=== PATIENT | female | born 1960 | race Caucasian/White ===

== ENCOUNTER 2019-04-18 19:38 | Inpatient (IN) ==
--- NOTE | 2019-04-18 19:58 | Emergency Department Note ---
Weakness HPI - General Chief complaint: Weakness Stated complaint: weakness and nausea and headache Time Seen by Provider: 04/18/19 19:48 Source: patient Mode of arrival: wheelchair - History of Present Illness HPI Narrative: This patient has been feeling weak in general and took a fall today. She thinks she hit her head and got knocked out and has headache and some neck pain. She does have chronic migraine headaches. She also has pain in the left ankle where she has swelling and redness developing. Some mild abdominal discomfort just below the rib cage in the middle which she thinks might be due to the fall. No focal neurologic symptoms. - Related Data Home Medications Medication Instructions Recorded Confirmed Gabapentin [Neurontin] 300 mg PO BID 04/18/19 04/18/19 traMADol [Ultram] 50 mg PO Q6HP PRN 04/18/19 04/18/19 Allergies Allergy/AdvReac Type Severity Reaction Status Date / Time NO KNOWN DRUG ALLERGIES Allergy Unknown N/A Uncoded 04/18/19 19:44 Review of Systems All systems ED: reviewed and negative except as stated. Past Medical History - Past Medical History [facility] Narrative: Medical History COPD exacerbation (Acute) Medical history: Reports: COPD - Social History smoking status: Former smoker Alcohol use: Reports: Occasionally Drug use: Reports: none Physical Exam Limitations: no limitations General appearance: alert Head: atraumatic Eye: Present: normal appearance ENT: normal exam Neck: Present: normal inspection, full ROM, tenderness Chest: Present: normal inspection, tenderness (Right lower rib cage) Respiratory: Present: normal lung sounds bilaterally Cardiovascular: Present: regular rate, normal rhythm, normal heart sounds Abdominal: Present: soft, tenderness (In the epigastrium and right upper quadrant). Absent: distention Extremities: Present: pedal edema (On the left), pretibial edema (On the left) Neurological: Present: alert Psychiatric: Present: flat affect Skin: Present: warm, dry Course Vital Signs Temperature 100.3 F H 04/18/19 19:39 Pulse Rate 132 H 04/18/19 19:39 Respiratory Rate 16 04/18/19 19:39 Blood Pressure 106/66 04/18/19 19:39 Pulse Oximetry (%) 97 04/18/19 19:39 Temperature 99.2 F H 04/18/19 22:02 Pulse Rate 113 H 04/18/19 22:31 Respiratory Rate 26 H 04/18/19 22:31 Blood Pressure 97/54 04/18/19 22:31 Pulse Oximetry (%) 97 04/18/19 22:31 Weakness - MDM Narrative Medical decision making narrative: CT of head and neck were negative venous Doppler is negative x-ray of left ankle was negative chest x-ray negative. Urinalysis was borderline with 13 white cells. Blood pressure is fallen from 110-97 her heart rate remains about 113. She does have a significant cellulitis in the left lower leg and we did blood cultures and started her on vancomycin. She will be admitted to the hospital by the hospitalist service. - Lab Data Lab results reviewed: Yes I reviewed the patient's lab results. Result diagrams: 04/18/19 20:09 04/18/19 20:08 Lab Results 04/18/19 04/18/19 04/18/19 Range/Units 20:08 20:09 21:00 WBC 13.6 H (4.5-11.0) K/mcL RBC 5.01 (4.00-5.20) M/mcL Hgb 14.1 (12.0-15.0) g/dL Hct 42.9 (36.0-48.0) % MCV 85.5 (80.0-100.0) fL MCH 28.2 (26.0-34.0) pg MCHC 33.0 (31.0-36.0) g/dL RDW 14.3 (11.5-14.5) % Plt Count 208 (140-440) K/mcL MPV 8.3 (7.4-10.4) fL Gran % 91.9 H (38.0-78.0) % Lymph % (Auto) 4.2 L (15.5-49.0) % [place] % (Auto) 3.8 (1.0-12.0) % Eos % (Auto) 0 (0.0-7.0) % Baso % (Auto) 0.1 (0.0-2.0) % Gran # 12.5 H (1.8-8.0) K/mcL Lymph # (Auto) 0.6 L (1.5-4.8) K/mcL [place] # (Auto) 0.5 (0.1-0.9) K/mcL Eos # (Auto) 0 (0.0-0.7) K/mcL Baso # (Auto) 0 (0.0-0.3) K/mcL Sodium 135 (133-145) mmol/L Potassium 3.4 (3.3-5.1) mmol/L Chloride 97 (96-108) mmol/L Carbon Dioxide 19 L (22-30) mmol/L Anion Gap 19.0 H (8-16) BUN 24 H (6-20) mg/dl Creatinine 1.3 H (0.6-1.1) mg/dl GFR Calculation 45 Glucose 147 H (70-105) mg/dL Calcium 9.1 (8.6-10.4) mg/dl Total Bilirubin 1.3 H (0.0-1.0) mg/dL AST 59 H (0-37) U/l ALT 30 (0-40) U/l Alkaline Phosphatase 95 (39-117) U/L Total Protein 7.4 (5.9-8.4) gm/dL Albumin 3.6 (3.2-5.2) gm/dL Globulin 3.8 H (2.2-3.7) gm/dL Albumin/Globulin Ratio 0.9 L (1.0-2.3) Urine Color Carmen Urine Appearance Cloudy Urine pH 5.0 (5.0-9.0) Ur Specific [place] 1.017 (1.000-1.035) Urine Protein 100 A (NEG) mg/dL Urine Glucose (UA) Negative (NEG) mg/dL Urine Ketones 5/tr A (NEG) mg/dL Urine Occult Blood 0.2 A (<0.03) mg/dL Urine Nitrate Neg (NEG) Urine Bilirubin Neg (NEG) mg/dL Urine Urobilinogen 2.0 A (NEG) mg/dL Ur Leukocyte Esterase Neg (NEG) /uL Urine RBC 5 H (0-1) /hpf Urine WBC 13 H (0-4) /hpf Ur Squamous Epith Cells 1 (0-4) /hpf Uric Acid Crystals Mod A (0) /hpf Amorphous Crystals Few A (0) /hpf Urine Bacteria 0 (0) /hpf Hyaline Casts 10 H (0-2) /lpf Granular Casts 7 H (0) /lpf Urine Mucus Mod (0) /hpf Ur Culture Indicated? Yes - Radiology Data Radiology results reviewed: Yes I reviewed the patient's radiology results. Disposition Pt seen by SITE DAMAGE PREVENTION TECHNICIAN/PA only: No Clinical Impression: Cellulitis Disposition: Xfer As Outpt/Obs ([facility]) Condition: Fair Referrals: Martina Thomson MD [Primary Care Provider] - Time of Disposition: 22:51
[2019-04-18 20:50] LABS: Basophils # (Auto) 0 K/mcL (0.0-0.3); Basophils % (Auto) 0.1 % (0.0-2.0); Eosinophils # (Auto) 0 K/mcL (0.0-0.7); Eosinophils % (Auto) 0 % (0.0-7.0); Granulocytes % (Auto) 91.9 % (38.0-78.0); Hematocrit 42.9 % (36.0-48.0); Hemoglobin 14.1 g/dL (12.0-15.0); Lymphocytes # (Auto) 0.6 K/mcL (1.5-4.8); Lymphocytes % (Auto) 4.2 % (15.5-49.0); Mean Cell Volume 85.5 fL (80.0-100.0); Mean Platelet Volume 8.3 fL (7.4-10.4); Monocytes # (Auto) 0.5 K/mcL (0.1-0.9); Monocytes % (Auto) 3.8 % (1.0-12.0); Platelet Count 208 K/mcL (140-440); RBC 5.01 M/mcL (4.00-5.20); Red Cell Distribution Width 14.3 % (11.5-14.5); WBC 13.6 K/mcL (4.5-11.0)
[2019-04-18 20:52] LABS: ALT/SGPT 30 U/l (0-40); AST/SGOT 59 U/l (0-37); Albumin 3.6 gm/dL (3.2-5.2); Albumin/Globulin Ratio 0.9 (1.0-2.3); Alkaline Phosphatase 95 U/L (39-117); Bilirubin,Total 1.3 mg/dL (0.0-1.0); Blood Urea Nitrogen 24 mg/dl (6-20); Calcium 9.1 mg/dl (8.6-10.4); Carbon Dioxide 19 mmol/L (22-30); Chloride 97 mmol/L (96-108); Globulin 3.8 gm/dL (2.2-3.7); Glomerular Filtration Rate 45; Glucose 147 mg/dL (70-105); Potassium 3.4 mmol/L (3.3-5.1); Sodium 135 mmol/L (133-145)
[2019-04-18] MEDS ORDERED: 0.9 % SODIUM CHLORIDE 1,000 ML IV ONE (21:01)
[2019-04-18] MEDS ORDERED: ACETAMINOPHEN 325 MG TABLET PO ONE (21:06)
[2019-04-18] MEDS ORDERED: VANCOMYCIN 1,000 MG in 0.9 % SODIUM CHLORIDE 250 ML IV ONE (21:54)
[2019-04-18 22:10] LABS: Appearance,Urine CLOUDY; Bacteria,Urine 0 /hpf (0); Bilirubin,Urine NEG (NEG); Color,Urine AMBER; Culture Indicated,Urine YES; Glucose,Urine (UA) NEGATIVE (NEG); Ketones,Urine 5/TR mg/dL (NEG); Leukocyte Esterase,Urine NEG /uL (NEG); Mucus,Urine MOD /hpf (0); Nitrate,Urine NEG (NEG); Protein,Urine 100 mg/dL (NEG); Specific Gravity,Urine 1.017 (1.000-1.035); Uric Acid Crystals,Urine MOD /hpf (0); Urine Amorphous Crystals FEW /hpf (0); Urine Blood 0.2 mg/dL (<0.03); Urine Granular Cast 7 /lpf (0); Urine Hyaline Cast 10 /lpf (0-2); Urine RBC 5 /hpf (0-1); Urine Squamous Epithelial Cell 1 /hpf (0-4); Urine WBC 13 /hpf (0-4)
[2019-04-18] MEDS ORDERED: LACTATED RINGERS 1,000 ML IV ONE (22:42)
[2019-04-18] MEDS ORDERED: KETOROLAC 30 MG/ML VIAL IV ONE (22:46)
[2019-04-18] MEDS ORDERED: METOCLOPRAMIDE 10 MG/2 ML VIAL IV ONE (22:46)
[2019-04-18] MEDS ORDERED: diphenhydrAMINE 50 MG/ML VIAL IV ONE (22:46)
--- NOTE | 2019-04-18 23:17 | Internal Med History&Physical ---
Medical - H&P: [facility] Patient information: Note initiated : 04/18/19 at 11:15 pm Service Date, if different from initiated Date: [] Patient: Nicole Rosenthal a 58 y/o F admitted on for weakness and nausea and headache. Chief Complaint: [] History of present illness: Ms. Rosenthal is a 58 year old F 58-year-old female who has been weak/nausea/headaches that started Friday. And she fell Friday in the bathroom possibly hitting her head, possibly fainting. She has history of migraines. She has left ankle pain and swelling and redness developing. And some rib pain where she thinks she might of hit when she fell. She reports dark urine. She become more lethargic per her friend and has had poor oral intake. She Patient complains of fevers and chills to me. No chest pain or shortness of breath or cough. In the ED she was worked up found to have a cellulitis of left leg with a septic picture. And acute kidney injury. CT of the brain and neck were unremarkable and venous Doppler leg was unrema rkable as well as ankle x-ray. Patient quite lethargic and history is assisted by her friend. Review of Systems: Pertinent positives as above. Denies vomiting/chest or abdominal pain/cough/dyspnea/diarrhea. Remaining 10 point review of system reviewed negative Medical - H&P: PMH Medical history: Past medical history: COPD Migraines Venous insufficiency with peripheral edema Neuropathy Past surgical history: Appendectomy Right oophorectomy herniated disc repair Family history: Mother is healthy Father had CAD Social history: Quit smoking 2011 Denies alcohol use Lives with a roommate Medical - H&P: Meds Home Medications Medication Instructions Recorded Confirmed Type Gabapentin [Neurontin] 300 mg PO BID 04/18/19 04/18/19 History traMADol [Ultram] 50 mg PO Q6HP PRN 04/18/19 04/18/19 History Allergies Allergy/AdvReac Type Severity Reaction Status Date / Time NO KNOWN DRUG ALLERGIES Allergy Unknown N/A Uncoded 04/18/19 19:44 Medical - H&P: Exam - Constitutional Vitals: Temp Pulse Resp BP Pulse Ox 99.2 F H 110 H 17 100/57 95 04/18/19 22:02 04/18/19 22:46 04/18/19 22:46 04/18/19 22:46 04/18/19 22:46 Exam: General: Sleeping in length but arousable but quite lethargic, No acute Distress Eyes/N/T: EOMI, PEERL, DMM Head/Neck: neck supple, normocephalic atraumatic CV: Tachycardic but regular, No murmurs, normal s1/s2 Pulm: Clear b/l, no wheezing/rhonchi/rales Abd: soft, nontender, +BS x4 Ext: no clubbing/cyanosis, edema bilateral worse on the left. Left lower extremity with erythema warmth tenderness to palpation swelling Neuro: Lethargic, no focal deficits, moves all extremities, CN 2-12 grossly intact, symmetrical strength b/l upper/lower, sensations intact b/l upper/lower Skin: warm/dry Medical - H&P: Reslt - Labs CBC & Chem 7: 04/18/19 20:09 04/18/19 20:08 Labs: Short CBC 04/18/19 Range/Units 20:09 WBC 13.6 H (4.5-11.0) K/mcL Hgb 14.1 (12.0-15.0) g/dL Hct 42.9 (36.0-48.0) % Plt Count 208 (140-440) K/mcL BMP 04/18/19 20:08 Sodium 135 Potassium 3.4 Chloride 97 Carbon Dioxide 19 L BUN 24 H Creatinine 1.3 H Glucose 147 H Calcium 9.1 Liver Function 04/18/19 Range/Units 20:08 Total Bilirubin 1.3 H (0.0-1.0) mg/dL AST 59 H (0-37) U/l ALT 30 (0-40) U/l Alkaline Phosphatase 95 (39-117) U/L Albumin 3.6 (3.2-5.2) gm/dL Urine 04/18/19 Range/Units 21:00 Urine Color Carmen Urine Appearance Cloudy Urine pH 5.0 (5.0-9.0) Ur Specific [place] 1.017 (1.000-1.035) Urine Protein 100 A (NEG) mg/dL Urine Glucose (UA) Negative (NEG) mg/dL - Impressions Per discussion with ED physician the CT brain cervical venous Doppler and x-ray were unremarkable for acute pathology Medical - H&P: A/P - Narrative A/P Narrative: A: *LLE cellulitis (ankle to upper hardy): *Sepsis: /qSofa (01/31) & SIRS (03/04): *LEIGHTON (unknown baseline): *Generalized weakness/deconditioning/falling: *Chronic venous insufficiency: Typically wears compression stockings *h/o Migraines *COPD/asthma (not on home O2): *chr pain /neuropathy: on jenna/tramadol * P: -Vanc/zosyn for now, clinda short course -pending BC -elevate legs -monitor UOP, -IVF's -cont home IH, prn nebs - -pt/ot -ppx: lovenox
[2019-04-18 23:31] LABS: Band Neutrophils % 13 % (0-10); Lymphocytes % 9 % (15-49); Monocytes % (Manual) 6 % (1-12); Platelet Estimate NORMAL (NORMAL); Polychromasia 1+ (NONE SEEN); RBC Morphology ABNORM (NORMAL); Segmented Neutrophils % 72 % (38-78)
[2019-04-19] MEDS ORDERED: 0.9 % SODIUM CHLORIDE 500 ML IV ONE (00:12)
[2019-04-19] MEDS ORDERED: ONDANSETRON 4 MG/2 ML VIAL IV PRN (00:12)
[2019-04-19] MEDS ORDERED: VANCOMYCIN PER PHARMACY IV ONE (00:12)
[2019-04-19] MEDS ORDERED: POTASSIUM CHLORIDE 40 MEQ in DEXTROSE 5% IN WATER 500 ML IV PRN (00:12)
[2019-04-19] MEDS ORDERED: SENNOSIDES 1 TABLET PO PRN (00:12)
[2019-04-19] MEDS ORDERED: PROCHLORPERAZINE 10 MG/2 ML VIAL IV PRN (00:12)
[2019-04-19] MEDS ORDERED: NOREPINEPHRINE BITARTRATE 8 MG in 0.9 % SODIUM CHLORIDE 242 ML IV SCH (00:12)
[2019-04-19] MEDS ORDERED: LACTULOSE 20 GM/30 ML ORAL.SOL PO PRN (00:12)
[2019-04-19] MEDS ORDERED: POTASSIUM CHLORIDE 20 MEQ TABLET PO PRN ×2 (00:12)
[2019-04-19] MEDS ORDERED: POLYETHYLENE GLYCOL 3350 17 GM PACKET PO PRN (00:12)
[2019-04-19] MEDS ORDERED: 0.9 % SODIUM CHLORIDE 1,000 ML IV SCH (00:12)
[2019-04-19] MEDS ORDERED: MAGNESIUM SULFATE 2 GM/50 ML BAG IV PRN (00:12)
[2019-04-19] MEDS: 0.9 % SODIUM CHLORIDE 10 ML SYRINGE IV SCH ×4 (00:35→21:37)
[2019-04-19] MEDS: CLINDAMYCIN 900 MG in DEXTROSE 5% IN WATER 50 ML IV SCH ×4 (00:35→22:13)
[2019-04-19] MEDS: PIPERACILLIN SODIUM/TAZOBACTAM 3.375 GM in DEXTROSE 5% IN WATER 50 ML IV SCH ×5 (00:35→23:55)
[2019-04-19] MEDS: 0.9 % SODIUM CHLORIDE 250 ML IV SCH ×2 (01:01→13:30)
[2019-04-19] MEDS ORDERED: ACETAMINOPHEN 325 MG TABLET PO ONE (02:42)
[2019-04-19] MEDS ORDERED: ACETAMINOPHEN 325 MG TABLET PO PRN (02:42)
[2019-04-19 05:48] LABS: Basophils # (Auto) 0 K/mcL (0.0-0.3); Basophils % (Auto) 0.1 % (0.0-2.0); Eosinophils # (Auto) 0 K/mcL (0.0-0.7); Eosinophils % (Auto) 0.2 % (0.0-7.0); Granulocytes % (Auto) 87.8 % (38.0-78.0); Hematocrit 37.2 % (36.0-48.0); Hemoglobin 12.3 g/dL (12.0-15.0); Lymphocytes # (Auto) 0.8 K/mcL (1.5-4.8); Lymphocytes % (Auto) 5.5 % (15.5-49.0); Mean Cell Volume 86.9 fL (80.0-100.0); Mean Corpuscular HGB Conc 33.1 g/dL (31.0-36.0); Monocytes # (Auto) 0.9 K/mcL (0.1-0.9); Monocytes % (Auto) 6.4 % (1.0-12.0); Platelet Count 179 K/mcL (140-440); RBC 4.28 M/mcL (4.00-5.20); Red Cell Distribution Width 14.4 % (11.5-14.5); WBC 14.1 K/mcL (4.5-11.0)
[2019-04-19] MEDS ORDERED: VANCOMYCIN PER PHARMACY IV SCH (06:00)
[2019-04-19 06:03] LABS: ALT/SGPT 24 U/l (0-40); AST/SGOT 43 U/l (0-37); Albumin 2.8 gm/dL (3.2-5.2); Albumin/Globulin Ratio 0.8 (1.0-2.3); Alkaline Phosphatase 80 U/L (39-117); Bilirubin,Direct 0.4 mg/dL (0.0-0.3); Bilirubin,Total 1.1 mg/dL (0.0-1.0); Blood Urea Nitrogen 23 mg/dl (6-20); Calcium 8.3 mg/dl (8.6-10.4); Carbon Dioxide 18 mmol/L (22-30); Chloride 104 mmol/L (96-108); Gamma Glutamyl Transpeptidase 35 U/L (5-36); Globulin 3.3 gm/dL (2.2-3.7); Glomerular Filtration Rate 49; Glucose 104 mg/dL (70-105); Lactate Dehydrogenase 352 U/L (94-250); Magnesium 1.9 mg/dL (1.6-2.5); Phosphorous 2.5 mg/dL (2.7-4.5); Potassium 3.4 mmol/L (3.3-5.1); Sodium 139 mmol/L (133-145); Triglycerides 82 mg/dl (<150); Uric Acid 5.8 mg/dL (2.5-8.0)
--- NOTE | 2019-04-19 07:30 | Internal Med Progress Note ---
Medical - PN: Subj Patient information: Note initiated : 04/19/19 at 7:30 am Service Date, if different from initiated Date: [] Patient: Nicole Rosenthal a 58 y/o F admitted on 04/19/19 for weakness and nausea and headache. Chief Complaint: [] Interval history: Ms. Rosenthal is a 58 year old F 58-year-old female who has been weak/nausea/headaches that started Friday. And she fell Friday in the bathroom possibly hitting her head, possibly fainting. She has history of migraines. She has left ankle pain and swelling and redness developing. And some rib pain where she thinks she might of hit when she fell. She reports dark urine. She become more lethargic per her friend and has had poor oral intake. She Patient complains of fevers and chills to me. No chest pain or shortness of breath or cough. In the ED she was worked up found to have a cellulitis of left leg with a septic picture. And acute kidney injury. CT of the brain and neck were unremarkable and venous Doppler leg was unremark able as well as ankle x-ray. Patient quite lethargic and history is assisted by her friend. 04/19 Planes of headaches fevers chills. Still very weak. Has left lower extremity pain. Was eating breakfast this morning and tolerated it well. Now resting in bed again. Review of Systems: denies nausea/vomiting/chest or abdominal pain/cough/dyspnea/diarrhea. Otherwise see above. - Constitutional Vitals: Vital Signs Temp Pulse Resp BP Pulse Ox 102.0 F H 100 H 20 114/65 96 04/19/19 07:25 04/19/19 00:21 04/19/19 06:01 04/19/19 06:01 04/19/19 06:01 Period Temp Pulse Resp BP Sys/[place] Pulse Ox Last 24 Hr 99.2 F-103.2 F 100-132 16-29 96-136/51-80 94-99 Intake and Output 04/18/19 04/19/19 04/19/19 21:59 05:59 13:59 Intake Total 3216 Output Total 585 175 Balance 2631 -175 Weight 83.915 kg 87.589 kg Intake & Output: Intake & Output 04/18/19 04/19/19 04/19/19 21:59 05:59 13:59 Intake Total 3216 Output Total 585 175 Balance 2631 -175 Weight 83.915 kg 87.589 kg Intake: IV 2856 Sodium Chloride 0.9% 500 ml @ 1500 Wide Open IV BOLUS ONE Rx#: [id number] Cleocin 900 mg In Dextrose 5% 56 in Water 50 ml @ 100 mls/hr IV Q8H [facility] Rx#:[id number] Lactated Ringers 1,000 ml @ 1000 Wide Open IV BOLUS ONE Rx#: [id number] Zosyn 3.375 gm In Dextrose 5% 50 in Water 50 ml @ 100 mls/hr IV Q6H [facility] Rx#:[id number] Vancomycin 1,000 mg In Sodium 250 Chloride 0.9% 250 ml @ 250 mls/ hr IV ONCE ONE Rx#:[id number] Oral 360 Output: Urine Catheter Amount 585 175 Fem Cath 400 Other: Urine Appearance Clear Clear Fem Cath Cloudy Clear Urine Color Dark Yellow Bright Yellow Fem Cath Dark Yellow Dark Yellow Exam: General: somnolent but arousable, No acute Distress Eyes/N/T: EOMI, Head/Neck: neck supple, CV: Tachycardic but regular, 1/6 SM Pulm: Clear b/l, no wheezing/rhonchi/rales Abd: soft, nontender, +BS x4 Ext: no clubbing/cyanosis, Left lower extremity with erythema warmth tenderness to palpation swelling. erythema improving Neuro: somnolent, no focal deficits, moves all extremities, Skin: warm/dry Medical - PN: Obj Da - Labs CBC & Chem 7: 04/19/19 03:50 04/19/19 03:50 Labs: Abnormal Lab Results 04/19/19 04/19/19 04/18/19 03:50 03:50 22:10 WBC 14.1 H Gran % 87.8 H Lymph % (Auto) 5.5 L Gran # 12.4 H Lymph # (Auto) 0.8 L Band Neutrophils % Lymphocytes % RBC Morphology Polychromasia VBG Lactic Acid < 0.2 L Carbon Dioxide 18 L Anion Gap 17.0 H BUN 23 H Creatinine 1.2 H Glucose Calcium 8.3 L Phosphorus 2.5 L Total Bilirubin 1.1 H Direct Bilirubin 0.4 H AST 43 H Lactate Dehydrogenase 352 H C-Reactive Protein Albumin 2.8 L Globulin Albumin/Globulin Ratio 0.8 L Urine Protein Urine Ketones Urine Occult Blood Urine Urobilinogen Urine RBC Urine WBC Uric Acid Crystals Amorphous Crystals Hyaline Casts Granular Casts 04/18/19 04/18/19 04/18/19 21:00 20:09 20:08 WBC 13.6 H Gran % 91.9 H Lymph % (Auto) 4.2 L Gran # 12.5 H Lymph # (Auto) 0.6 L Band Neutrophils % Lymphocytes % RBC Morphology Polychromasia VBG Lactic Acid Carbon Dioxide Anion Gap BUN Creatinine Glucose Calcium Phosphorus Total Bilirubin Direct Bilirubin AST Lactate Dehydrogenase C-Reactive Protein 36.5 H Albumin Globulin Albumin/Globulin Ratio Urine Protein 100 A Urine Ketones 5/tr A Urine Occult Blood 0.2 A Urine Urobilinogen 2.0 A Urine RBC 5 H Urine WBC 13 H Uric Acid Crystals Mod A Amorphous Crystals Few A Hyaline Casts 10 H Granular Casts 7 H 04/18/19 04/18/19 20:08 20:08 WBC Gran % Lymph % (Auto) Gran # Lymph # (Auto) Band Neutrophils % 13 H Lymphocytes % 9 L RBC Morphology Abnorm A Polychromasia 1+ A VBG Lactic Acid Carbon Dioxide 19 L Anion Gap 19.0 H BUN 24 H Creatinine 1.3 H Glucose 147 H Calcium Phosphorus Total Bilirubin 1.3 H Direct Bilirubin AST 59 H Lactate Dehydrogenase C-Reactive Protein Albumin Globulin 3.8 H Albumin/Globulin Ratio 0.9 L Urine Protein Urine Ketones Urine Occult Blood Urine Urobilinogen Urine RBC Urine WBC Uric Acid Crystals Amorphous Crystals Hyaline Casts Granular Casts Meds: Medications Acetaminophen (Tylenol) 650 mg PO Q4-6HP PRN PRN Reason: PAIN/FEVER > 101 Last Admin: 04/19/19 07:25 Dose: 650 mg Documented by: Hydrocodone Bitart/Acetaminophen ([place] 5/325mg) 1 tab PO Q4HP PRN PRN Reason: PAIN LEVEL 3-6 Albuterol/Ipratropium (Duoneb) 3 ml NEB Q4HP PRN PRN Reason: Shortness Of Breath Docusate Sodium (Colace) 100 mg PO BID [facility] Enoxaparin Sodium (Lovenox) 40 mg SQ DAILY [facility] Famotidine (Pepcid) 20 mg PO BID [facility] Gabapentin (Neurontin) 300 mg PO BID [facility] Clindamycin Phosphate 900 mg/ (Dextrose) 56 mls @ 100 mls/hr IV Q8H [facility]; Protocol Last Admin: 04/19/19 07:26 Dose: 100 mls/hr Documented by: Potassium Chloride 40 meq/ (Dextrose) 520 mls @ 130 mls/hr IV UD PRN PRN Reason: Potassium < 3 Magnesium Sulfate (Magnesium Sulfate) 2 gm in 50 mls @ 50 mls/hr IV UD PRN PRN Reason: Magnesium </= 1.6 Norepinephrine Bitartrate 8 mg (/ Sodium Chloride) 250 mls @ 18.75 mls/hr IV Q14H [facility]; Protocol Last Admin: 04/19/19 01:00 Dose: Not Given Documented by: Sodium Chloride (Sodium Chloride 0.9%) 1,000 mls @ 75 mls/hr IV .[id number] [facility] Stop: 04/19/19 13:31 Last Admin: 04/19/19 01:30 Dose: 75 mls/hr Documented by: Sodium Chloride (Sodium Chloride 0.9%) 250 mls @ 20 mls/hr IV .[id number] [facility] Last Admin: 04/19/19 01:01 Dose: Not Given Documented by: Piperacillin Sod/Tazobactam (Sod 3.375 gm/ Dextrose) 50 mls @ 100 mls/hr IV Q6H [facility]; Protocol Last Admin: 04/19/19 05:22 Dose: 100 mls/hr Documented by: Vancomycin HCl 1,000 mg/ (Sodium Chloride) 250 mls @ 250 mls/hr IV Q12H [facility] Lactulose (Cephulac) 10 gm PO DAILYP PRN PRN Reason: Constipation Morphine Sulfate (Morphine) 0 mg IV Q3HP PRN PRN Reason: Pain Ondansetron HCl (Zofran) 4 mg IV Q4HP PRN PRN Reason: Nausea And Vomiting Polyethylene Glycol (Miralax) 17 gm PO DAILYP PRN PRN Reason: Constipation Potassium Chloride (Kdur) 40 meq PO UD PRN PRN Reason: Potssium is 3-3.5 Potassium Chloride (Kdur) 40 meq PO UD PRN PRN Reason: Potassium < 3 Prochlorperazine (Compazine) 10 mg IV Q6HP PRN PRN Reason: Nausea And Vomiting Senna (Senokot) 2 tab PO HSP PRN PRN Reason: Constipation Sodium Chloride (Saline Flush) 10 ml IV Q8 [facility] Last Admin: 04/19/19 05:22 Dose: Not Given Documented by: Tramadol HCl (Ultram) 50 mg PO Q6HP PRN PRN Reason: Pain Vancomycin HCl (Vancomycin Per Pharmacy) 1 order IV UD [facility]; Protocol Medical - PN: A/P - Time Spent With Patient Total time spent is greater than 50% in coordination of care (as documented) at patient's floor/unit and/or counseling patient: - Narrative A/P Narrative: A: *LLE cellulitis (ankle to upper hardy): *Sepsis: qSofa (01/31) & SIRS (03/04): -febrile *Encephalopathy: slowly improving *[place] (unknown baseline): *Generalized weakness/deconditioning/falling: *Chronic venous insufficiency: Typically wears compression stockings *h/o Migraines *COPD/asthma (not on home O2): *chr pain /neuropathy: on jenna/tramadol * P: -Vanc/zosyn for now, clinda short course -pending BC -elevate legs -monitor UOP, -IVF's -cont home IH, prn nebs -CT LE -IS -pt/ot -ppx: lovenox Medical - PN: Qual - VTE Deep Vein Thrombosis/Pulmonary Embolism Present on Admission: No
--- NOTE | 2019-04-19 08:24 | XRay Report ---
CLINICAL INFORMATION: Trauma COMPARISON: None. FINDINGS: No fracture or other osseous abnormality identified. Ankle mortise and talocalcaneal joints are normal in width and alignment without evidence of arthritis. Soft tissues are unremarkable. IMPRESSION: Normal ankle. Interpreted and Authenticated by: Fransisco Ramos 04/19/19
[2019-04-19 08:25] LABS: Band Neutrophils % 31 % (0-10); Lymphocytes % 7 % (15-49); Monocytes % (Manual) 7 % (1-12); Platelet Estimate NORMAL (NORMAL); RBC Morphology NORMAL (NORMAL); Segmented Neutrophils % 55 % (38-78)
[2019-04-19] MEDS: DOCUSATE SODIUM 100 MG CAPSULE PO SCH ×2 (08:34→20:40)
[2019-04-19] MEDS: FAMOTIDINE 20 MG TABLET PO SCH ×2 (08:34→20:40)
--- NOTE | 2019-04-19 08:34 | XRay Report ---
CLINICAL INFORMATION: fever COMPARISON: 01/14/2017 FINDINGS: Heart size, mediastinum and pulmonary vessels are normal. Small right basilar infiltrate has developed. There is mild atelectasis in the left base as previously seen. No effusion IMPRESSION: New small right basilar infiltrate. Minor left basilar atelectasis Interpreted and Authenticated by: Fransisco Ramos 04/19/19
[2019-04-19] MEDS: ENOXAPARIN 40 MG/0.4 ML SYRINGE SQ SCH (08:35)
[2019-04-19] MEDS: VANCOMYCIN 1,000 MG in 0.9 % SODIUM CHLORIDE 250 ML IV SCH ×2 (08:36→20:32)
--- NOTE | 2019-04-19 08:40 | Ultrasound Report ---
CLINICAL INFORMATION: Left lower extremity edema COMPARISON: None. FINDINGS: The entire deep venous system including the common femoral, superficial femoral, popliteal and paired trifurcation calf veins are easily compressible and show normal venous blood flow on color and spectral Doppler. No evidence of thrombus IMPRESSION: No evidence of deep vein thrombosis. 4-5 enlarged left inguinal lymph nodes range up to 4 cm. Please correlate with physical exam findings including potential adenopathy in other regions. The lymph nodes have benign reniform morphology and almost certainly represent benign reactive adenopathy Interpreted and Authenticated by: Fransisco Ramos 04/19/19
--- NOTE | 2019-04-19 08:41 | Cat Scan Report ---
CLINICAL INFORMATION: Trauma COMPARISON: None. TECHNIQUE: 2.5 mm helical slices were obtained in the skull base to vertex. Following reconstruction, axial reformatted images were reviewed at bone and parenchymal windows. The exam was performed using radiation dose optimization techniques including, but not limited to, automated exposure control, adjustment of the mA and/or kV according to patient size and use of iterative reconstruction technique. FINDINGS: The ventricles, sulci, fissures, and cisterns are normal in size and configuration. No extra-axial fluid collections are identified. The cerebrum, brainstem and cerebellum are unremarkable. There is no evidence of hemorrhage, mass effect, or edema. Bone windows show no osseous abnormality. IMPRESSION: Normal head CT without contrast. Interpreted and Authenticated by: Fransisco Ramos 04/19/19
--- NOTE | 2019-04-19 08:54 | Cat Scan Report ---
CLINICAL INFORMATION: Trauma COMPARISON: None. TECHNIQUE: 2.5 mm helical slices were obtained from the skull base through the superior T2 end plate. Following reconstruction, 2.5 mm sagittal, coronal and axial reformations , with and without disc space angling, were processed. The exam was reviewed at bone and soft tissue windows. The exam was performed using radiation dose optimization techniques including, but not limited to, automated exposure control, adjustment of the mA and/or kV according to patient size and use of iterative reconstruction technique. FINDINGS: Sagittal and coronal reformatted images show the cervical spine to be anatomically aligned. There is no fracture or other osseous abnormality. The cervical cord is normal in contour and caliber without focal lesion. The soft tissues are normal. The C2-3 and C3-4 disc levels are normal. At C4-5, C5-6 and C6-7, mild broad disc spur complex minimally effaces the anterior thecal sac. At C6-7, there is moderate narrowing of the left lateral recess potential impinging the exiting left C7 nerve root. The C7-T1 disc level is normal. IMPRESSION: 1. No fracture or acute posttraumatic change. 2. C6-7: Mild broad disc protrusion. There is moderate left lateral recess narrowing potential impinging the exiting left C7 nerve root. Interpreted and Authenticated by: Fransisco Ramos 04/19/19
[2019-04-19] MEDS: IPRATROPIUM/ALBUTEROL 3 ML AMPUL.NEB NEB PRN (10:07)
[2019-04-19] MEDS: LACTOBACILLUS 1 CAPSULE PO SCH ×2 (10:36→20:40)
[2019-04-19] MEDS ORDERED: IOPAMIDOL 100 ML BOTTLE IV ONE (10:38)
--- NOTE | 2019-04-19 11:11 | Cat Scan Report ---
CLINICAL INFORMATION: cellulitis COMPARISON: None. TECHNIQUE: 0.625 mm helical slices were obtained from the distal one fourth of the femur through the entire calf and ankle and foot. Following reconstruction, 2.5 mm axial sagittal coronal reformatted images were processed and reviewed at soft tissue and bone windows. FINDINGS: Moderate cellulitis, predominantly subdermal soft tissues, of the mid/lower calf with extension to the ankle and foot. Very small amount of fluid are seen adjacent to the deep fascia. The muscle and fascia within the compartments, however, appear unremarkable - no DVT evidence of myositis or deep fasciitis. There is no evidence of discrete abscess. Osseous structures are normal without evidence of osteomyelitis. Moderate patellofemoral and tibiofemoral degenerative change noted. There are hammertoe deformities in the second through fifth digits. Mild pes planus appreciated IMPRESSION: Moderate cellulitis, predominantly in the subdermal soft tissues throughout the calf, ankle and foot. There is no evidence of discrete abscess. Also, there is no evidence of myositis or fasciitis within the compartments. Osseous structures are normal - no CT evidence of osteomyelitis Interpreted and Authenticated by: Fransisco Ramos 04/19/19
[2019-04-19] MEDS: ACETAMINOPHEN 1,000 MG/100 ML BOTTLE IV PRN ×2 (12:16→19:17)
[2019-04-19] MEDS: 0.9 % SODIUM CHLORIDE 1,000 ML IV SCH (14:00)
[2019-04-19] MEDS: GABAPENTIN 300 MG CAPSULE PO SCH (20:40)
[2019-04-19] MEDS: HYDROcodone/APAP 5/325MG TABLET PO PRN (22:04)
[2019-04-20] MEDS: traMADol 50 MG TABLET PO PRN ×3 (01:05→15:05)
[2019-04-20] MEDS: HYDROcodone/APAP 5/325MG TABLET PO PRN ×4 (04:12→18:46)
[2019-04-20] MEDS: PIPERACILLIN SODIUM/TAZOBACTAM 3.375 GM in DEXTROSE 5% IN WATER 50 ML IV SCH ×3 (05:15→17:57)
[2019-04-20] MEDS: 0.9 % SODIUM CHLORIDE 10 ML SYRINGE IV SCH ×3 (05:45→22:00)
[2019-04-20 05:46] LABS: Hematocrit 32.3 % (36.0-48.0); Hemoglobin 10.8 g/dL (12.0-15.0); Mean Cell Volume 87.2 fL (80.0-100.0); Mean Corpuscular HGB Conc 33.5 g/dL (31.0-36.0); Mean Platelet Volume 8.8 fL (7.4-10.4); Platelet Count 184 K/mcL (140-440); Red Cell Distribution Width 14.9 % (11.5-14.5); WBC 10.8 K/mcL (4.5-11.0)
[2019-04-20 06:15] LABS: ALT/SGPT 24 U/l (0-40); AST/SGOT 35 U/l (0-37); Albumin 2.5 gm/dL (3.2-5.2); Albumin/Globulin Ratio 0.8 (1.0-2.3); Alkaline Phosphatase 85 U/L (39-117); Bilirubin,Direct 0.3 mg/dL (0.0-0.3); Bilirubin,Total 0.7 mg/dL (0.0-1.0); Blood Urea Nitrogen 19 mg/dl (6-20); Calcium 8.2 mg/dl (8.6-10.4); Carbon Dioxide 19 mmol/L (22-30); Chloride 108 mmol/L (96-108); Gamma Glutamyl Transpeptidase 35 U/L (5-36); Globulin 3.1 gm/dL (2.2-3.7); Glomerular Filtration Rate 61; Glucose 119 mg/dL (70-105); Lactate Dehydrogenase 227 U/L (94-250); Phosphorous 2.1 mg/dL (2.7-4.5); Potassium 3.3 mmol/L (3.3-5.1); Sodium 139 mmol/L (133-145); Triglycerides 108 mg/dl (<150); Uric Acid 2.7 mg/dL (2.5-8.0)
[2019-04-20 06:19] LABS: C-Reactive Protein 37.6 mg/dl (0.0-0.8)
[2019-04-20 06:30] LABS: Band Neutrophils % 8 % (0-10); Eosinophils % (Manual) 2 % (0-7); Lymphocytes % 7 % (15-49); Monocytes % (Manual) 5 % (1-12); Platelet Estimate NORMAL (NORMAL); RBC Morphology NORMAL (NORMAL); Segmented Neutrophils % 78 % (38-78)
[2019-04-20] MEDS: CLINDAMYCIN 900 MG in DEXTROSE 5% IN WATER 50 ML IV SCH ×3 (06:51→22:21)
[2019-04-20] MEDS: ACETAMINOPHEN 1,000 MG/100 ML BOTTLE IV PRN ×2 (07:40→19:11)
[2019-04-20] MEDS: 0.9 % SODIUM CHLORIDE 1,000 ML IV SCH (07:49)
--- NOTE | 2019-04-20 07:59 | Internal Med Progress Note ---
Medical - PN: Subj Patient information: Note initiated : 04/20/19 at 7:55 am Service Date, if different from initiated Date: [] Patient: Nicole Rosenthal a 58 y/o F admitted on 04/19/19 for weakness and nausea and headache. Chief Complaint: [] Interval history: Ms. Rosenthal is a 58 year old F 58-year-old female who has been weak/nausea/headaches that started Friday. And she fell Friday in the bathroom possibly hitting her head, possibly fainting. She has history of migraines. She has left ankle pain and swelling and redness developing. And some rib pain where she thinks she might of hit when she fell. She reports dark urine. She become more lethargic per her friend and has had poor oral intake. She Patient complains of fevers and chills to me. No chest pain or shortness of breath or cough. In the ED she was worked up found to have a cellulitis of left leg with a septic picture. And acute kidney injury. CT of the brain and neck were unremarkable and venous Doppler leg was unremark able as well as ankle x-ray. Patient quite lethargic and history is assisted by her friend. 04/19 Planes of headaches fevers chills. Still very weak. Has left lower extremity pain. Was eating breakfast this morning and tolerated it well. Now resting in bed again. 04/20 States poor sleep, but otherwise no events overnight. Plans to mild headache. And leg is still painful. Review of Systems: denies nausea/vomiting/chest or abdominal pain/cough/dyspnea/diarrhea. Otherwise see above. - Constitutional Vitals: Vital Signs Temp Pulse Resp BP Pulse Ox 99.9 F H 94 H 15 102/59 95 04/20/19 07:01 04/20/19 07:01 04/20/19 07:01 04/20/19 07:01 04/20/19 07:01 Period Temp Pulse Resp BP Sys/Morocho Pulse Ox Last 24 Hr 99.7 F-102.4 F 90-112 14-39 86-129/46-73 93-98 Intake and Output 04/19/19 04/20/19 04/20/19 21:59 05:59 13:59 Intake Total 2056 456 1376 Output Total 420 375 100 Balance 1636 81 1276 Weight 88.178 kg Intake & Output: Intake & Output 04/19/19 04/20/19 04/20/19 21:59 05:59 13:59 Intake Total 2056 456 1376 Output Total 420 375 100 Balance 1636 81 1276 Weight 88.178 kg Intake: IV 0754 942 4311 Sodium Chloride 0.9% 1,000 ml @ 1000 75 mls/hr IV .[id number] [facility] Rx#: [id number] Cleocin 900 mg In Dextrose 5% 56 56 56 in Water 50 ml @ 100 mls/hr IV Q8H [facility] Rx#:[id number] Zosyn 3.375 gm In Dextrose 5% 50 100 in Water 50 ml @ 100 mls/hr IV Q6H [facility] Rx#:[id number] Vancomycin 1,000 mg In Sodium 250 Chloride 0.9% 250 ml @ 250 mls/ hr IV Q12H [facility] Rx#:[id number] Oral 600 300 320 Output: Urine Catheter Amount 420 125 100 Void Amount 250 Other: Meal Dinner snack Percent of Meal Consumed Refused 100% Feeding Ability Assist with Tray Set Up Urine Appearance Clear Clear Cloudy Fem Cath Clear Clear Urine Color Straw Dark Yellow Dark Carmen Fem Cath Straw Straw Urine Odor Normal Normal Stool Size Large Stool Color Brown Stool Consistency Formed # Bowel Movements 1 Exam: General: somnolent but arousable, No acute Distress Eyes/N/T: EOMI, Head/Neck: neck supple, CV: midly tachycardic but regular, 1/6 SM Pulm: Clear b/l, no wheezing/rhonchi/rales Abd: soft, nontender, +BS x4 Ext: no clubbing/cyanosis, Left lower extremity with erythema/warmth/tenderness to palpation. slowly improving Neuro: somnolent, no focal deficits, moves all extremities, Skin: warm/dry Medical - PN: Obj Da - Labs CBC & Chem 7: 04/20/19 03:14 04/20/19 03:14 Labs: Abnormal Lab Results 04/20/19 04/20/19 04/20/19 03:14 03:14 03:14 WBC RBC 3.70 L Hgb 10.8 L Hct 32.3 L RDW 14.9 H Gran % Lymph % (Auto) Gran # Lymph # (Auto) Band Neutrophils % Lymphocytes % 7 L RBC Morphology Polychromasia VBG Lactic Acid Carbon Dioxide 19 L Anion Gap BUN Creatinine Glucose 119 H Calcium 8.2 L Phosphorus 2.1 L Total Bilirubin Direct Bilirubin AST Lactate Dehydrogenase C-Reactive Protein 37.6 H Total Protein 5.6 L Albumin 2.5 L Globulin Albumin/Globulin Ratio 0.8 L Urine Protein Urine Ketones Urine Occult Blood Urine Urobilinogen Urine RBC Urine WBC Uric Acid Crystals Amorphous Crystals Hyaline Casts Granular Casts 04/19/19 04/19/19 04/19/19 03:50 03:50 03:20 WBC 14.1 H RBC Hgb Hct RDW Gran % 87.8 H Lymph % (Auto) 5.5 L Gran # 12.4 H Lymph # (Auto) 0.8 L Band Neutrophils % 31 H Lymphocytes % 7 L RBC Morphology Polychromasia VBG Lactic Acid Carbon Dioxide 18 L Anion Gap 17.0 H BUN 23 H Creatinine 1.2 H Glucose Calcium 8.3 L Phosphorus 2.5 L Total Bilirubin 1.1 H Direct Bilirubin 0.4 H AST 43 H Lactate Dehydrogenase 352 H C-Reactive Protein Total Protein Albumin 2.8 L Globulin Albumin/Globulin Ratio 0.8 L Urine Protein Urine Ketones Urine Occult Blood Urine Urobilinogen Urine RBC Urine WBC Uric Acid Crystals Amorphous Crystals Hyaline Casts Granular Casts 04/18/19 04/18/19 04/18/19 22:10 21:00 20:09 WBC 13.6 H RBC Hgb Hct RDW Gran % 91.9 H Lymph % (Auto) 4.2 L Gran # 12.5 H Lymph # (Auto) 0.6 L Band Neutrophils % Lymphocytes % RBC Morphology Polychromasia VBG Lactic Acid < 0.2 L Carbon Dioxide Anion Gap BUN Creatinine Glucose Calcium Phosphorus Total Bilirubin Direct Bilirubin AST Lactate Dehydrogenase C-Reactive Protein Total Protein Albumin Globulin Albumin/Globulin Ratio Urine Protein 100 A Urine Ketones 5/tr A Urine Occult Blood 0.2 A Urine Urobilinogen 2.0 A Urine RBC 5 H Urine WBC 13 H Uric Acid Crystals Mod A Amorphous Crystals Few A Hyaline Casts 10 H Granular Casts 7 H 04/18/19 04/18/19 04/18/19 20:08 20:08 20:08 WBC RBC Hgb Hct RDW Gran % Lymph % (Auto) Gran # Lymph # (Auto) Band Neutrophils % 13 H Lymphocytes % 9 L RBC Morphology Abnorm A Polychromasia 1+ A VBG Lactic Acid Carbon Dioxide 19 L Anion Gap 19.0 H BUN 24 H Creatinine 1.3 H Glucose 147 H Calcium Phosphorus Total Bilirubin 1.3 H Direct Bilirubin AST 59 H Lactate Dehydrogenase C-Reactive Protein 36.5 H Total Protein Albumin Globulin 3.8 H Albumin/Globulin Ratio 0.9 L Urine Protein Urine Ketones Urine Occult Blood Urine Urobilinogen Urine RBC Urine WBC Uric Acid Crystals Amorphous Crystals Hyaline Casts Granular Casts Meds: Medications Acetaminophen (Tylenol) 650 mg PO Q4-6HP PRN PRN Reason: PAIN/FEVER > 101 Last Admin: 04/19/19 07:25 Dose: 650 mg Documented by: Hydrocodone Bitart/Acetaminophen (Cypress 5/325mg) 1 tab PO Q4HP PRN PRN Reason: PAIN LEVEL 3-6 Last Admin: 04/20/19 04:12 Dose: 1 tab Documented by: Albuterol/Ipratropium (Duoneb) 3 ml NEB Q4HP PRN PRN Reason: Shortness Of Breath Last Admin: 04/19/19 10:07 Dose: 3 ml Documented by: Docusate Sodium (Colace) 100 mg PO BID [facility] Last Admin: 04/19/19 20:40 Dose: 100 mg Documented by: Enoxaparin Sodium (Lovenox) 40 mg SQ DAILY [facility] Last Admin: 04/19/19 08:35 Dose: 40 mg Documented by: Famotidine (Pepcid) 20 mg PO BID [facility] Last Admin: 04/19/19 20:40 Dose: 20 mg Documented by: Gabapentin (Neurontin) 300 mg PO BID [facility] Last Admin: 04/19/19 20:40 Dose: 300 mg Documented by: Clindamycin Phosphate 900 mg/ (Dextrose) 56 mls @ 100 mls/hr IV Q8H [facility]; Protocol Last Infusion: 04/20/19 07:50 Dose: Infused Documented by: Potassium Chloride 40 meq/ (Dextrose) 520 mls @ 130 mls/hr IV UD PRN PRN Reason: Potassium < 3 Magnesium Sulfate (Magnesium Sulfate) 2 gm in 50 mls @ 50 mls/hr IV UD PRN PRN Reason: Magnesium </= 1.6 Piperacillin Sod/Tazobactam (Sod 3.375 gm/ Dextrose) 50 mls @ 100 mls/hr IV Q6H [facility]; Protocol Last Infusion: 04/20/19 05:45 Dose: Infused Documented by: Vancomycin HCl 1,000 mg/ (Sodium Chloride) 250 mls @ 250 mls/hr IV Q12H [facility] Last Infusion: 04/19/19 21:35 Dose: Infused Documented by: Acetaminophen (Ofirmev) 1,000 mg in 100 mls @ 200 mls/hr IV Q6HP PRN PRN Reason: PAIN/FEVER > 101 Last Admin: 04/20/19 07:40 Dose: 100 mls/hr Documented by: Lactobacillus Rhamnosus (Culturelle) 1 cap PO BID [facility] Last Admin: 04/19/19 20:40 Dose: 1 cap Documented by: Lactulose (Cephulac) 10 gm PO DAILYP PRN PRN Reason: Constipation Morphine Sulfate (Morphine) 0 mg IV Q3HP PRN PRN Reason: Pain Last Admin: 04/20/19 05:22 Dose: 3 mg Documented by: Ondansetron HCl (Zofran) 4 mg IV Q4HP PRN PRN Reason: Nausea And Vomiting Polyethylene Glycol (Miralax) 17 gm PO DAILYP PRN PRN Reason: Constipation Potassium Chloride (Kdur) 40 meq PO UD PRN PRN Reason: Potssium is 3-3.5 Potassium Chloride (Kdur) 40 meq PO UD PRN PRN Reason: Potassium < 3 Prochlorperazine (Compazine) 10 mg IV Q6HP PRN PRN Reason: Nausea And Vomiting Senna (Senokot) 2 tab PO HSP PRN PRN Reason: Constipation Sodium Chloride (Saline Flush) 10 ml IV Q8 [facility] Last Admin: 04/20/19 05:45 Dose: 10 ml Documented by: Tramadol HCl (Ultram) 50 mg PO Q6HP PRN PRN Reason: Pain Last Admin: 04/20/19 07:39 Dose: 50 mg Documented by: Vancomycin HCl (Vancomycin Per Pharmacy) 1 order IV UD [facility]; Protocol Medical - PN: A/P - Time Spent With Patient Total time spent is greater than 50% in coordination of care (as documented) at patient's floor/unit and/or counseling patient: - Narrative A/P Narrative: A: *LLE cellulitis (ankle to upper hardy): -CT no abscess/gas/fasciitis *Sepsis: qSofa (3/3) & SIRS (4/4): -intermittent fevers -leukocytosis/bandemia resolved -PCT improving *Encephalopathy: much improved today *LEIGHTON (unknown baseline) on CKD: -resolved *Generalized weakness/deconditioning/falling: *Chronic venous insufficiency: Typically wears compression stockings *h/o Migraines *COPD/asthma (not on home O2): *chr pain /neuropathy: on jenna/tramadol * P: -Vanc/zosyn for now, clinda short course. d/c vanco after today -pending BC -elevate legs -cont home IH, prn nebs -IS -pt/ot -ppx: [facility] Medical - PN: Qual - VTE Deep Vein Thrombosis/Pulmonary Embolism Present on Admission: No
[2019-04-20] MEDS: LACTOBACILLUS 1 CAPSULE PO SCH ×2 (08:40→20:28)
[2019-04-20] MEDS: FAMOTIDINE 20 MG TABLET PO SCH ×2 (08:40→20:28)
[2019-04-20] MEDS: ENOXAPARIN 40 MG/0.4 ML SYRINGE SQ SCH (08:41)
[2019-04-20] MEDS: DOCUSATE SODIUM 100 MG CAPSULE PO SCH ×2 (08:41→20:28)
[2019-04-20] MEDS: GABAPENTIN 300 MG CAPSULE PO SCH ×2 (08:41→20:28)
[2019-04-20] MEDS: VANCOMYCIN 1,000 MG in 0.9 % SODIUM CHLORIDE 250 ML IV SCH ×2 (10:58→20:16)
[2019-04-20] MEDS: IPRATROPIUM/ALBUTEROL 3 ML AMPUL.NEB NEB PRN (15:12)
[2019-04-20] MEDS ORDERED: ZOLPIDEM 5 MG TABLET PO PRN (19:35)
[2019-04-21] MEDS: PIPERACILLIN SODIUM/TAZOBACTAM 3.375 GM in DEXTROSE 5% IN WATER 50 ML IV SCH ×5 (00:18→23:10)
[2019-04-21] MEDS: ACETAMINOPHEN 1,000 MG/100 ML BOTTLE IV PRN ×2 (03:19→09:45)
[2019-04-21] MEDS: 0.9 % SODIUM CHLORIDE 10 ML SYRINGE IV SCH ×3 (05:03→21:07)
[2019-04-21 06:21] LABS: Basophils # (Auto) 0 K/mcL (0.0-0.3); Basophils % (Auto) 0 % (0.0-2.0); Eosinophils # (Auto) 0.2 K/mcL (0.0-0.7); Eosinophils % (Auto) 2.1 % (0.0-7.0); Granulocytes % (Auto) 80.5 % (38.0-78.0); Hematocrit 33.4 % (36.0-48.0); Lymphocytes # (Auto) 1.1 K/mcL (1.5-4.8); Mean Cell Volume 86.9 fL (80.0-100.0); Mean Corpuscular HGB Conc 32.8 g/dL (31.0-36.0); Mean Platelet Volume 8.4 fL (7.4-10.4); Monocytes # (Auto) 0.6 K/mcL (0.1-0.9); Monocytes % (Auto) 6.4 % (1.0-12.0); Platelet Count 209 K/mcL (140-440); RBC 3.85 M/mcL (4.00-5.20); Red Cell Distribution Width 15.4 % (11.5-14.5); WBC 10.2 K/mcL (4.5-11.0)
[2019-04-21 06:39] LABS: ALT/SGPT 24 U/l (0-40); AST/SGOT 29 U/l (0-37); Albumin 2.6 gm/dL (3.2-5.2); Albumin/Globulin Ratio 0.7 (1.0-2.3); Alkaline Phosphatase 125 U/L (39-117); Bilirubin,Direct 0.3 mg/dL (0.0-0.3); Bilirubin,Total 0.7 mg/dL (0.0-1.0); Blood Urea Nitrogen 15 mg/dl (6-20); Calcium 8.5 mg/dl (8.6-10.4); Carbon Dioxide 20 mmol/L (22-30); Chloride 103 mmol/L (96-108); Gamma Glutamyl Transpeptidase 40 U/L (5-36); Globulin 3.6 gm/dL (2.2-3.7); Glomerular Filtration Rate 61; Glucose 118 mg/dL (70-105); Lactate Dehydrogenase 231 U/L (94-250); Magnesium 1.7 mg/dL (1.6-2.5); Phosphorous 2.7 mg/dL (2.7-4.5); Potassium 3.7 mmol/L (3.3-5.1); Sodium 138 mmol/L (133-145); Triglycerides 152 mg/dl (<150); Uric Acid 2.3 mg/dL (2.5-8.0)
[2019-04-21] MEDS: CLINDAMYCIN 900 MG in DEXTROSE 5% IN WATER 50 ML IV SCH (07:47)
[2019-04-21] MEDS ORDERED: MAGNESIUM SULFATE 2 GM/50 ML BAG IV ONE (08:00)
[2019-04-21] MEDS ORDERED: POTASSIUM CHLORIDE 20 MEQ PACKET PO ONE (08:00)
[2019-04-21] MEDS: FAMOTIDINE 20 MG TABLET PO SCH ×2 (09:36→21:04)
[2019-04-21] MEDS: DOCUSATE SODIUM 100 MG CAPSULE PO SCH ×2 (09:36→21:04)
[2019-04-21] MEDS: GABAPENTIN 300 MG CAPSULE PO SCH ×2 (09:36→21:03)
[2019-04-21] MEDS: LACTOBACILLUS 1 CAPSULE PO SCH ×2 (09:36→21:04)
[2019-04-21] MEDS: ENOXAPARIN 40 MG/0.4 ML SYRINGE SQ SCH (09:37)
--- NOTE | 2019-04-21 11:34 | Internal Med Progress Note ---
Medical - PN: Subj Patient information: Note initiated : 04/21/19 at 11:31 am Service Date, if different from initiated Date: [] Patient: Nicole Rosenthal a 58 y/o F admitted on 04/19/19 for weakness and nausea and headache. Chief Complaint: [] Interval history: Ms. Rosenthal is a 58 year old F 58-year-old female who has been weak/nausea/headaches that started Friday. And she fell Friday in the bathroom possibly hitting her head, possibly fainting. She has history of migraines. She has left ankle pain and swelling and redness developing. And some rib pain where she thinks she might of hit when she fell. She reports dark urine. She become more lethargic per her friend and has had poor oral intake. She Patient complains of fevers and chills to me. No chest pain or shortness of breath or cough. In the ED she was worked up found to have a cellulitis of left leg with a septic picture. And acute kidney injury. CT of the brain and neck were unremarkable and venous Doppler leg was unremark able as well as ankle x-ray. Patient quite lethargic and history is assisted by her friend. 04/19 Planes of headaches fevers chills. Still very weak. Has left lower extremity pain. Was eating breakfast this morning and tolerated it well. Now resting in bed again. 04/20 States poor sleep, but otherwise no events overnight. Plans to mild headache. And leg is still painful. 04/21 Patient seen and examined, still has significant pain in the left lower extremity still has persistent low-grade fevers and chills. Repeat cultures. Infectious disease consulted advised repeating the culture, continue vancomycin and Zosyn discontinue clindamycin, advised to get an MRI of the left lower extremity will order same. Patient is hemodynamically stable, does not need any oxygen at least when she is awake, labs are showing improvement blood pressure is better She will be transferred to [facility] status Pertinent ROS: Denies headache, dizziness Denies chest pain, palpitations Denies cough or shortness of breath Denies abdominal pain, nausea or vomiting. - Constitutional Vitals: Vital Signs Temp Pulse Resp BP Pulse Ox 99.9 F H 103 H 17 113/67 93 04/21/19 09:45 04/21/19 08:01 04/21/19 08:01 04/21/19 08:01 04/21/19 08:01 Period Temp Pulse Resp BP Sys/Morocho Pulse Ox Last 24 Hr 98.2 F-101.5 F 89-110 12-31 84-135/49-109 20- Intake and Output 04/20/19 04/21/19 04/21/19 21:59 05:59 13:59 Intake Total 886 1056 240 Output Total 645 900 400 Balance 241 156 -160 Weight 203 lb 4.8 oz Intake & Output: Intake & Output 04/20/19 04/21/19 04/21/19 21:59 05:59 13:59 Intake Total 886 1056 240 Output Total 645 900 400 Balance 241 156 -160 Weight 203 lb 4.8 oz Intake: IV 206 256 Cleocin 900 mg In Dextrose 5% 56 56 in Water 50 ml @ 100 mls/hr IV Q8H [facility] Rx#:[id number] Zosyn 3.375 gm In Dextrose 5% 50 100 in Water 50 ml @ 100 mls/hr IV Q6H [facility] Rx#:[id number] Oral 680 800 240 Output: Urine Catheter Amount 645 900 400 Other: Meal Lunch snack Breakfast Percent of Meal Consumed 100% 100% 100% Feeding Ability Assist with Tray Set Up Urine Appearance Cloudy Clear Clear Fem Cath Cloudy Cloudy Clear Urine Color Dark Yellow Dark Yellow Dark Yellow Fem Cath Dark Yellow Dark Yellow Dark Yellow Urine Odor Normal Normal Normal Stool Size Moderate Stool Color Brown Stool Consistency Dry and Hard Formed Liquid # Bowel Movements 1 Exam: Constitutional; Afebrile, cooperative, alert, not in distress. Respiratory system: Air Entry equal on both sides, No crackles or wheezing, no rhonchi. CVS- Rate rhythm regular, S1,S2 heard, no gallop, no rub. Abdomen- Soft nontender abdomen, no organomegaly, no tenderness, no guarding or rigidity, SSN/SSBN [employer]- AOOx3, moving all extremities, no gross focal deficit noted. Left lower extremity -redness/ and tenderness present, skin erythema is within the line of demarcation. Medical - PN: Obj Da - Labs CBC & Chem 7: 04/21/19 03:40 04/21/19 03:40 Labs: Abnormal Lab Results 04/21/19 04/21/19 04/20/19 03:40 03:40 03:14 WBC RBC 3.85 L Hgb 11.0 L Hct 33.4 L RDW 15.4 H Gran % 80.5 H Lymph % (Auto) 11.0 L Gran # 8.2 H Lymph # (Auto) 1.1 L Band Neutrophils % Lymphocytes % RBC Morphology Polychromasia VBG Lactic Acid Carbon Dioxide 20 L 19 L Anion Gap BUN Creatinine Glucose 118 H 119 H Uric Acid 2.3 L Calcium 8.5 L 8.2 L Phosphorus 2.1 L Total Bilirubin Direct Bilirubin GGT 40 H AST Alkaline Phosphatase 125 H Lactate Dehydrogenase C-Reactive Protein Total Protein 5.6 L Albumin 2.6 L 2.5 L Globulin Albumin/Globulin Ratio 0.7 L 0.8 L Triglycerides 152 H Urine Protein Urine Ketones Urine Occult Blood Urine Urobilinogen Urine RBC Urine WBC Uric Acid Crystals Amorphous Crystals Hyaline Casts Granular Casts 04/20/19 04/20/19 04/19/19 03:14 03:14 03:50 WBC RBC 3.70 L Hgb 10.8 L Hct 32.3 L RDW 14.9 H Gran % Lymph % (Auto) Gran # Lymph # (Auto) Band Neutrophils % Lymphocytes % 7 L RBC Morphology Polychromasia VBG Lactic Acid Carbon Dioxide 18 L Anion Gap 17.0 H BUN 23 H Creatinine 1.2 H Glucose Uric Acid Calcium 8.3 L Phosphorus 2.5 L Total Bilirubin 1.1 H Direct Bilirubin 0.4 H GGT AST 43 H Alkaline Phosphatase Lactate Dehydrogenase 352 H C-Reactive Protein 37.6 H Total Protein Albumin 2.8 L Globulin Albumin/Globulin Ratio 0.8 L Triglycerides Urine Protein Urine Ketones Urine Occult Blood Urine Urobilinogen Urine RBC Urine WBC Uric Acid Crystals Amorphous Crystals Hyaline Casts Granular Casts 04/19/19 04/19/19 04/18/19 03:50 03:20 22:10 WBC 14.1 H RBC Hgb Hct RDW Gran % 87.8 H Lymph % (Auto) 5.5 L Gran # 12.4 H Lymph # (Auto) 0.8 L Band Neutrophils % 31 H Lymphocytes % 7 L RBC Morphology Polychromasia VBG Lactic Acid < 0.2 L Carbon Dioxide Anion Gap BUN Creatinine Glucose Uric Acid Calcium Phosphorus Total Bilirubin Direct Bilirubin GGT AST Alkaline Phosphatase Lactate Dehydrogenase C-Reactive Protein Total Protein Albumin Globulin Albumin/Globulin Ratio Triglycerides Urine Protein Urine Ketones Urine Occult Blood Urine Urobilinogen Urine RBC Urine WBC Uric Acid Crystals Amorphous Crystals Hyaline Casts Granular Casts 04/18/19 04/18/19 04/18/19 21:00 20:09 20:08 WBC 13.6 H RBC Hgb Hct RDW Gran % 91.9 H Lymph % (Auto) 4.2 L Gran # 12.5 H Lymph # (Auto) 0.6 L Band Neutrophils % Lymphocytes % RBC Morphology Polychromasia VBG Lactic Acid Carbon Dioxide Anion Gap BUN Creatinine Glucose Uric Acid Calcium Phosphorus Total Bilirubin Direct Bilirubin GGT AST Alkaline Phosphatase Lactate Dehydrogenase C-Reactive Protein 36.5 H Total Protein Albumin Globulin Albumin/Globulin Ratio Triglycerides Urine Protein 100 A Urine Ketones 5/tr A Urine Occult Blood 0.2 A Urine Urobilinogen 2.0 A Urine RBC 5 H Urine WBC 13 H Uric Acid Crystals Mod A Amorphous Crystals Few A Hyaline Casts 10 H Granular Casts 7 H 04/18/19 04/18/19 20:08 20:08 WBC RBC Hgb Hct RDW Gran % Lymph % (Auto) Gran # Lymph # (Auto) Band Neutrophils % 13 H Lymphocytes % 9 L RBC Morphology Abnorm A Polychromasia 1+ A VBG Lactic Acid Carbon Dioxide 19 L Anion Gap 19.0 H BUN 24 H Creatinine 1.3 H Glucose 147 H Uric Acid Calcium Phosphorus Total Bilirubin 1.3 H Direct Bilirubin GGT AST 59 H Alkaline Phosphatase Lactate Dehydrogenase C-Reactive Protein Total Protein Albumin Globulin 3.8 H Albumin/Globulin Ratio 0.9 L Triglycerides Urine Protein Urine Ketones Urine Occult Blood Urine Urobilinogen Urine RBC Urine WBC Uric Acid Crystals Amorphous Crystals Hyaline Casts Granular Casts Meds: Medications Acetaminophen (Tylenol) 650 mg PO Q4-6HP PRN PRN Reason: PAIN/FEVER > 101 Last Admin: 04/19/19 07:25 Dose: 650 mg Documented by: Hydrocodone Bitart/Acetaminophen ([place] 5/325mg) 1 tab PO Q4HP PRN PRN Reason: PAIN LEVEL 3-6 Last Admin: 04/20/19 18:46 Dose: 1 tab Documented by: Albuterol/Ipratropium (Duoneb) 3 ml NEB Q4HP PRN PRN Reason: Shortness Of Breath Last Admin: 04/20/19 15:12 Dose: 3 ml Documented by: Docusate Sodium (Colace) 100 mg PO BID [facility] Last Admin: 04/21/19 09:36 Dose: 100 mg Documented by: Enoxaparin Sodium (Lovenox) 40 mg SQ DAILY [facility] Last Admin: 04/21/19 09:37 Dose: 40 mg Documented by: Famotidine (Pepcid) 20 mg PO BID [facility] Last Admin: 04/21/19 09:36 Dose: 20 mg Documented by: Gabapentin (Neurontin) 300 mg PO BID [facility] Last Admin: 04/21/19 09:36 Dose: 300 mg Documented by: Potassium Chloride 40 meq/ (Dextrose) 520 mls @ 130 mls/hr IV UD PRN PRN Reason: Potassium < 3 Magnesium Sulfate (Magnesium Sulfate) 2 gm in 50 mls @ 50 mls/hr IV UD PRN PRN Reason: Magnesium </= 1.6 Piperacillin Sod/Tazobactam (Sod 3.375 gm/ Dextrose) 50 mls @ 100 mls/hr IV Q6H [facility]; Protocol Last Infusion: 04/21/19 05:45 Dose: Infused Documented by: Acetaminophen (Ofirmev) 1,000 mg in 100 mls @ 200 mls/hr IV Q6HP PRN PRN Reason: PAIN/FEVER > 101 Last Admin: 04/21/19 09:45 Dose: 200 mls/hr Documented by: Vancomycin HCl 1,000 mg/ (Sodium Chloride) 250 mls @ 250 mls/hr IV Q12H [facility] Lactobacillus Rhamnosus (Culturelle) 1 cap PO BID [facility] Last Admin: 04/21/19 09:36 Dose: 1 cap Documented by: Lactulose (Cephulac) 10 gm PO DAILYP PRN PRN Reason: Constipation Morphine Sulfate (Morphine) 0 mg IV Q3HP PRN PRN Reason: Pain Last Admin: 04/21/19 03:12 Dose: 2 mg Documented by: Ondansetron HCl (Zofran) 4 mg IV Q4HP PRN PRN Reason: Nausea And Vomiting Polyethylene Glycol (Miralax) 17 gm PO DAILYP PRN PRN Reason: Constipation Potassium Chloride (Kdur) 40 meq PO UD PRN PRN Reason: Potssium is 3-3.5 Potassium Chloride (Kdur) 40 meq PO UD PRN PRN Reason: Potassium < 3 Prochlorperazine (Compazine) 10 mg IV Q6HP PRN PRN Reason: Nausea And Vomiting Senna (Senokot) 2 tab PO HSP PRN PRN Reason: Constipation Sodium Chloride (Saline Flush) 10 ml IV Q8 [facility] Last Admin: 04/21/19 05:03 Dose: 10 ml Documented by: Tramadol HCl (Ultram) 50 mg PO Q6HP PRN PRN Reason: Pain Last Admin: 04/20/19 15:05 Dose: 50 mg Documented by: Vancomycin HCl (Vancomycin Per Pharmacy) 1 order IV UD [facility]; Protocol Zolpidem Tartrate (Ambien) 5 mg PO HSP PRN PRN Reason: Insomnia Last Admin: 04/20/19 20:33 Dose: 5 mg Documented by: Medical - PN: A/P - Time Spent With Patient Total time spent is greater than 50% in coordination of care (as documented) at patient's floor/unit and/or counseling patient: - Narrative A/P Narrative: A: *LLE cellulitis (ankle to upper hardy): -CT no abscess/gas/fasciitis -Given pt has not improved after 3 days of ABX, ID consult -IV vanco and zosyn to continue, d/c clinda -MRI leg as per ID *Sepsis: qSofa (3/3) & SIRS (4/4): -intermittent fevers, improved curve -leukocytosis/bandemia resolved -PCT improving -check resp viral panel, -repeat blood and urine cultures *Encephalopathy: much improved -mental status seems at baseline *LEIGHTON (unknown baseline) on CKD: -resolved *Generalized weakness/deconditioning/falling: -aggresive rehab *Chronic venous insufficiency: Typically wears compression stockings *h/o Migraines *COPD/asthma (not on home O2): *chr pain /neuropathy: on jenna/tramadol -IS -pt/ot -ppx: [facility] - PN: Qual - VTE Deep Vein Thrombosis/Pulmonary Embolism Present on Admission: No
[2019-04-21] MEDS ORDERED: IPRATROPIUM/ALBUTEROL 3 ML AMPUL.NEB NEB PRN (11:58)
[2019-04-21] MEDS ORDERED: ACETAMINOPHEN 1,000 MG/100 ML BOTTLE IV PRN (11:58)
[2019-04-21] MEDS ORDERED: ONDANSETRON 4 MG/2 ML VIAL IV PRN (11:58)
[2019-04-21] MEDS ORDERED: PROCHLORPERAZINE 10 MG/2 ML VIAL IV PRN (11:58)
[2019-04-21] MEDS ORDERED: VANCOMYCIN PER PHARMACY IV SCH (11:58)
[2019-04-21] MEDS ORDERED: traMADol 50 MG TABLET PO PRN (11:58)
[2019-04-21] MEDS ORDERED: LACTULOSE 20 GM/30 ML ORAL.SOL PO PRN (11:58)
[2019-04-21] MEDS ORDERED: POTASSIUM CHLORIDE 20 MEQ TABLET PO PRN ×2 (11:58)
[2019-04-21] MEDS ORDERED: ACETAMINOPHEN 325 MG TABLET PO PRN (11:58)
[2019-04-21] MEDS ORDERED: POLYETHYLENE GLYCOL 3350 17 GM PACKET PO PRN (11:58)
[2019-04-21] MEDS ORDERED: MAGNESIUM SULFATE 2 GM/50 ML BAG IV PRN (11:58)
[2019-04-21] MEDS ORDERED: POTASSIUM CHLORIDE 40 MEQ in DEXTROSE 5% IN WATER 500 ML IV PRN (11:58)
[2019-04-21] MEDS ORDERED: VANCOMYCIN 1,000 MG in 0.9 % SODIUM CHLORIDE 250 ML IV SCH (12:00)
[2019-04-21] MEDS: VANCOMYCIN 1,000 MG in 0.9 % SODIUM CHLORIDE 250 ML IV SCH ×2 (12:10→21:07)
--- NOTE | 2019-04-21 13:32 | Infectious Disease Consult ---
History of Present Illness Patient information: Note initiated : 04/21/19 at 1:18 pm Service Date, if different from initiated Date: [] Patient: Nicole Rosenthal 58 y/o F admitted on 04/19/19 for weakness and nausea and headache. Chief Complaint: [] Consult date: 04/21/19 Requesting Physician: Gualberto Lopez Reason for Consult: Persistent fever Chief complaint: My leg hurts History of present illness: 58-year-old lady with no significant past medical history admitted to [facility] on 04/18. Pt was brought by her friend for concerns of not feeling well, dizziness, fall in the bathroom and hitting her head. Patient reports that she had been feeling unwell for last week. She does not remember what came first but noticed difficulty and pain while walking, left leg freely too heavy, body aches, chills, fever since last Friday. On day of presentation, she felt so weak and fatigued that she had a fall in the bathroom and probably hit her head. She also noticed some chest pain at the site where she fell. Patient denies any other symptoms: Cough, diarrhea, nausea, vomiting, blisters or boils on the skin, animal bites, trauma to the leg or feet, diarrhea. She lives with her friend. Denies any sick contacts. Has few cats, which do not sleep with her but do stay close to her in the house. Patient denies being sexually active for last few years. In the ED, she was found to have a temperature of 100.3F, heart rate 132, blood pressure 106/66, RR 26. WBC was 13.6, creatinine 1.3, UA negative for nitra prema/leukocyte esterase. Procalcitonin was 17.8. A CT of the brain and neck were unremarkable. Venous Doppler leg and ankle x-ray were both unremarkable for any signs of infection. Patient was admitted, blood cultures and urine cultures sent. She was started on IV vancomycin, IV clindamycin and IV Zosyn. Patient has been having persistent low to high-grade temperatures since admission fluctuating between 37.3 C to 38.6C. Infectious disease was consulted today given these concerns as patient was on broad-spectrum antibiotics and still with left leg swelling and fevers. At time of visit, patient was resting. She confirmed the above history, added that she still has a lot of pain in her left leg and foot. She also expressed feeling cold, requesting more blankets and some shivering. She denied any symptoms of flu, sick contacts. She denied any international travel. Review of Systems All systems PM: reviewed and no additional remarkable complaints except as stated Past History Past family history: Not pertinent to current presentation Past social history: Quit smoking tobacco in 2011, endorses smoking marijuana occasionally. Does not drink or use any IV drugs Lives with a roommate Medications and Allergies Home Medications Medication Instructions Recorded Confirmed Type Gabapentin [Neurontin] 300 mg PO BID 04/18/19 04/18/19 History traMADol [Ultram] 50 mg PO Q6HP PRN 04/18/19 04/18/19 History Allergies Allergy/AdvReac Type Severity Reaction Status Date / Time No Known Drug Allergies Allergy Unverified 04/19/19 05:53 Physical Examination Vital signs: Temp Pulse Resp BP Pulse Ox 37.3 C H 97 H 20 109/64 96 04/21/19 12:06 04/21/19 12:06 04/21/19 12:06 04/21/19 12:06 04/21/19 12:06 General appearance: no acute distress Eyes pulmonary: nonicteric Auscultation: bilateral: clear (except at bases where there are crackles) Cardiovascular: other (s1 s2 normal, no murmurs) Gastrointestinal: normoactive bowel sounds, soft, non-tender Extremities: other (has left leg and foot swelling with redness, tenderness, warmth, some scaling. No lesions or ulcers. ) Results - Laboratory Findings CBC and BMP: 04/21/19 03:40 04/21/19 03:40 Abnormal lab findings: Abnormal Labs 04/18/19 04/18/19 04/18/19 20:08 20:08 20:08 WBC RBC Hgb Hct RDW Gran % Lymph % (Auto) Gran # Lymph # (Auto) Band Neutrophils % 13 H Lymphocytes % 9 L RBC Morphology Abnorm A Polychromasia 1+ A VBG Lactic Acid Carbon Dioxide 19 L Anion Gap 19.0 H BUN 24 H Creatinine 1.3 H Glucose 147 H Uric Acid Calcium Phosphorus Total Bilirubin 1.3 H Direct Bilirubin GGT AST 59 H Alkaline Phosphatase Lactate Dehydrogenase C-Reactive Protein 36.5 H Total Protein Albumin Globulin 3.8 H Albumin/Globulin Ratio 0.9 L Triglycerides Urine Protein Urine Ketones Urine Occult Blood Urine Urobilinogen Urine RBC Urine WBC Uric Acid Crystals Amorphous Crystals Hyaline Casts Granular Casts 04/18/19 04/18/19 04/18/19 20:09 21:00 22:10 WBC 13.6 H RBC Hgb Hct RDW Gran % 91.9 H Lymph % (Auto) 4.2 L Gran # 12.5 H Lymph # (Auto) 0.6 L Band Neutrophils % Lymphocytes % RBC Morphology Polychromasia VBG Lactic Acid < 0.2 L Carbon Dioxide Anion Gap BUN Creatinine Glucose Uric Acid Calcium Phosphorus Total Bilirubin Direct Bilirubin GGT AST Alkaline Phosphatase Lactate Dehydrogenase C-Reactive Protein Total Protein Albumin Globulin Albumin/Globulin Ratio Triglycerides Urine Protein 100 A Urine Ketones 5/tr A Urine Occult Blood 0.2 A Urine Urobilinogen 2.0 A Urine RBC 5 H Urine WBC 13 H Uric Acid Crystals Mod A Amorphous Crystals Few A Hyaline Casts 10 H Granular Casts 7 H 04/19/19 04/19/19 04/19/19 03:20 03:50 03:50 WBC 14.1 H RBC Hgb Hct RDW Gran % 87.8 H Lymph % (Auto) 5.5 L Gran # 12.4 H Lymph # (Auto) 0.8 L Band Neutrophils % 31 H Lymphocytes % 7 L RBC Morphology Polychromasia VBG Lactic Acid Carbon Dioxide 18 L Anion Gap 17.0 H BUN 23 H Creatinine 1.2 H Glucose Uric Acid Calcium 8.3 L Phosphorus 2.5 L Total Bilirubin 1.1 H Direct Bilirubin 0.4 H GGT AST 43 H Alkaline Phosphatase Lactate Dehydrogenase 352 H C-Reactive Protein Total Protein Albumin 2.8 L Globulin Albumin/Globulin Ratio 0.8 L Triglycerides Urine Protein Urine Ketones Urine Occult Blood Urine Urobilinogen Urine RBC Urine WBC Uric Acid Crystals Amorphous Crystals Hyaline Casts Granular Casts 04/20/19 04/20/19 04/20/19 03:14 03:14 03:14 WBC RBC 3.70 L Hgb 10.8 L Hct 32.3 L RDW 14.9 H Gran % Lymph % (Auto) Gran # Lymph # (Auto) Band Neutrophils % Lymphocytes % 7 L RBC Morphology Polychromasia VBG Lactic Acid Carbon Dioxide 19 L Anion Gap BUN Creatinine Glucose 119 H Uric Acid Calcium 8.2 L Phosphorus 2.1 L Total Bilirubin Direct Bilirubin GGT AST Alkaline Phosphatase Lactate Dehydrogenase C-Reactive Protein 37.6 H Total Protein 5.6 L Albumin 2.5 L Globulin Albumin/Globulin Ratio 0.8 L Triglycerides Urine Protein Urine Ketones Urine Occult Blood Urine Urobilinogen Urine RBC Urine WBC Uric Acid Crystals Amorphous Crystals Hyaline Casts Granular Casts 04/21/19 04/21/19 03:40 03:40 WBC RBC 3.85 L Hgb 11.0 L Hct 33.4 L RDW 15.4 H Gran % 80.5 H Lymph % (Auto) 11.0 L Gran # 8.2 H Lymph # (Auto) 1.1 L Band Neutrophils % Lymphocytes % RBC Morphology Polychromasia VBG Lactic Acid Carbon Dioxide 20 L Anion Gap BUN Creatinine Glucose 118 H Uric Acid 2.3 L Calcium 8.5 L Phosphorus Total Bilirubin Direct Bilirubin GGT 40 H AST Alkaline Phosphatase 125 H Lactate Dehydrogenase C-Reactive Protein Total Protein Albumin 2.6 L Globulin Albumin/Globulin Ratio 0.7 L Triglycerides 152 H Urine Protein Urine Ketones Urine Occult Blood Urine Urobilinogen Urine RBC Urine WBC Uric Acid Crystals Amorphous Crystals Hyaline Casts Granular Casts Microbiology: Microbiology 04/18/19 22:10 Blood Blood Culture - Preliminary 04/18/19 22:13 Blood Blood Culture - Preliminary 04/18/19 21:00 Urine - Catheterized Urine Culture - Final 04/19/19 00:25 Nose MRSA (PCR) - Final Assessment and Plan - Narrative A/P Narrative: A: 1. Left leg and foot skin and soft tissue infection: looks like cellulitis but lack of expected response to antibiotics is concerning - determine extent of infection given persistence of leg symptoms even after 3 days of broad spectrum antibiotics 2. Sepsis: resolved - qSOFA score 1 today, SOFA score 0 - likely from the left leg infection Recommendations: - 2 sets of blood Cx, urine Cx, resp viral panel were sent this am after discussion with team - Continue IV Vanc per pharmacy assisted dosing - Continue IV Zosyn 3.375 gm q6 hrs - Consider MRI left leg and left foot to r/o any myositis or deeper infection or fluid collection - Pt counseled to keep her left leg and foot elevated - If fevers persist, TTE and/or whole body tagged WBC scan might be indicated will follow Cirilo Caal MD Infectious diseases
[2019-04-21] MEDS: HYDROcodone/APAP 5/325MG TABLET PO PRN ×3 (13:38→21:19)
--- NOTE | 2019-04-21 18:33 | Magnetic Resonance Report ---
CLINICAL INFORMATION: cellulitis/myositis COMPARISON: CT 04/19/2019. TECHNIQUE axial T1 and T2, coronal T1 STIR sagittal T1 and STIR images were obtained through the left calf FINDINGS: Moderate cellulitis throughout the subdermal soft tissues tissues of the calf is slightly more prominent medially. There is a layer of inflammatory fluid, radiographically to 11 mm mm layer of fluid encircling the deep fascia but not involving the adjacent musculature.. This is similar to prior CT. All the calf muscles demonstrate normal signal with no evidence of myositis. Marrow signal is entirely unremarkable - no evidence of osteomyelitis. Mild degeneration with the ankle mortise tibiofemoral patellofemoral joint. IMPRESSION: Diffuse cellulitis similar to CT two days ago. No evidence of myositis, discrete abscess or osteomyelitis Interpreted and Authenticated by: Fransisco Ramos 04/21/19
[2019-04-21] MEDS ORDERED: SENNOSIDES 1 TABLET PO PRN (21:00)
[2019-04-21] MEDS: ZOLPIDEM 5 MG TABLET PO PRN (21:18)
[2019-04-22] MEDS: HYDROcodone/APAP 5/325MG TABLET PO PRN ×2 (04:16→07:53)
[2019-04-22] MEDS: 0.9 % SODIUM CHLORIDE 10 ML SYRINGE IV SCH ×3 (05:30→22:28)
[2019-04-22] MEDS: PIPERACILLIN SODIUM/TAZOBACTAM 3.375 GM in DEXTROSE 5% IN WATER 50 ML IV SCH (05:30)
[2019-04-22 06:01] LABS: Basophils # (Auto) 0 K/mcL (0.0-0.3); Basophils % (Auto) 0.2 % (0.0-2.0); Eosinophils # (Auto) 0.3 K/mcL (0.0-0.7); Eosinophils % (Auto) 3.1 % (0.0-7.0); Granulocytes % (Auto) 77.9 % (38.0-78.0); Hematocrit 32.7 % (36.0-48.0); Hemoglobin 10.6 g/dL (12.0-15.0); Lymphocytes # (Auto) 1.3 K/mcL (1.5-4.8); Lymphocytes % (Auto) 13.6 % (15.5-49.0); Mean Cell Volume 87.2 fL (80.0-100.0); Mean Corpuscular HGB Conc 32.5 g/dL (31.0-36.0); Mean Platelet Volume 7.8 fL (7.4-10.4); Monocytes # (Auto) 0.5 K/mcL (0.1-0.9); Monocytes % (Auto) 5.2 % (1.0-12.0); Platelet Count 266 K/mcL (140-440); RBC 3.75 M/mcL (4.00-5.20); Red Cell Distribution Width 15.1 % (11.5-14.5); WBC 9.9 K/mcL (4.5-11.0)
[2019-04-22 06:33] LABS: ALT/SGPT 31 U/l (0-40); AST/SGOT 38 U/l (0-37); Albumin 2.6 gm/dL (3.2-5.2); Albumin/Globulin Ratio 0.7 (1.0-2.3); Alkaline Phosphatase 164 U/L (39-117); Bilirubin,Direct < 0.2 mg/dL (0.0-0.3); Bilirubin,Total 0.5 mg/dL (0.0-1.0); Blood Urea Nitrogen 10 mg/dl (6-20); Calcium 8.9 mg/dl (8.6-10.4); Carbon Dioxide 23 mmol/L (22-30); Chloride 107 mmol/L (96-108); Gamma Glutamyl Transpeptidase 59 U/L (5-36); Globulin 3.7 gm/dL (2.2-3.7); Glomerular Filtration Rate 70; Glucose 112 mg/dL (70-105); Lactate Dehydrogenase 221 U/L (94-250); Magnesium 1.9 mg/dL (1.6-2.5); Phosphorous 2.8 mg/dL (2.7-4.5); Potassium 3.7 mmol/L (3.3-5.1); Sodium 142 mmol/L (133-145); Triglycerides 137 mg/dl (<150); Uric Acid 2.3 mg/dL (2.5-8.0)
[2019-04-22] MEDS: LACTOBACILLUS 1 CAPSULE PO SCH ×2 (07:59→21:29)
[2019-04-22] MEDS: GABAPENTIN 300 MG CAPSULE PO SCH ×2 (08:00→21:29)
[2019-04-22] MEDS: FAMOTIDINE 20 MG TABLET PO SCH ×2 (08:00→21:29)
[2019-04-22] MEDS: DOCUSATE SODIUM 100 MG CAPSULE PO SCH ×2 (09:03→21:29)
[2019-04-22] MEDS: ENOXAPARIN 40 MG/0.4 ML SYRINGE SQ SCH (09:03)
[2019-04-22] MEDS: VANCOMYCIN 1,000 MG in 0.9 % SODIUM CHLORIDE 250 ML IV SCH ×2 (09:30→21:31)
--- NOTE | 2019-04-22 10:52 | Internal Med Progress Note ---
Medical - PN: Subj Patient information: Note initiated : 04/22/19 at 10:50 am Service Date, if different from initiated Date: [] Patient: Nicole Rosenthal a 58 y/o F admitted on 04/19/19 for weakness and nausea and headache. Chief Complaint: [] Interval history: Ms. Rosenthal is a 58 year old F 58-year-old female who has been weak/nausea/headaches that started Friday. And she fell Friday in the bathroom possibly hitting her head, possibly fainting. She has history of migraines. She has left ankle pain and swelling and redness developing. And some rib pain where she thinks she might of hit when she fell. She reports dark urine. She become more lethargic per her friend and has had poor oral intake. She Patient complains of fevers and chills to me. No chest pain or shortness of breath or cough. In the ED she was worked up found to have a cellulitis of left leg with a septic picture. And acute kidney injury. CT of the brain and neck were unremarkable and venous Doppler leg was unremark able as well as ankle x-ray. Patient quite lethargic and history is assisted by her friend. 04/19 Planes of headaches fevers chills. Still very weak. Has left lower extremity pain. Was eating breakfast this morning and tolerated it well. Now resting in bed again. 04/20 States poor sleep, but otherwise no events overnight. Plans to mild headache. And leg is still painful. 04/21 Patient seen and examined, still has significant pain in the left lower extremity still has persistent low-grade fevers and chills. Repeat cultures. Infectious disease consulted advised repeating the culture, continue vancomycin and Zosyn discontinue clindamycin, advised to get an MRI of the left lower extremity will order same. Patient is hemodynamically stable, does not need any oxygen at least when she is awake, labs are showing improvement blood pressure is better She will be transferred to [facility] status 04/22 Patient seen examined, no acute issues, tolerating po diet well still has significant pain in the left leg MRI shows cellulilitis clinically the leg appears better, labs stable, wbc normalized. only low grade fever, but pt feels tired Pertinent ROS: Denies headache, dizziness Denies chest pain, palpitations Denies cough or shortness of breath Denies abdominal pain, nausea or vomiting. left leg pain persistent. - Constitutional Vitals: Vital Signs Temp Pulse Resp BP Pulse Ox 97.4 F 104 H 24 H 105/70 92 04/22/19 08:00 04/22/19 03:20 04/22/19 08:00 04/22/19 08:00 04/22/19 08:00 Period Temp Pulse Resp BP Sys/[place] Pulse Ox Last 24 Hr 97.4 F-100.2 F 96-106 15-24 98-120/54-70 91-97 Intake and Output 04/21/19 04/22/19 04/22/19 21:59 05:59 13:59 Intake Total 800 840 270 Output Total 590 1500 1600 Balance 210 -660 -1330 Weight 205 lb Intake & Output: Intake & Output 04/21/19 04/22/19 04/22/19 21:59 05:59 13:59 Intake Total 800 840 270 Output Total 590 1500 1600 Balance 210 -660 -1330 Weight 205 lb Intake: IV 300 300 50 Zosyn 3.375 gm In Dextrose 5% 50 50 50 in Water 50 ml @ 100 mls/hr IV Q6H YASH Rx#:[id number] Vancomycin 1,000 mg In Sodium 250 250 Chloride 0.9% 250 ml @ 250 mls/ hr IV Q12H YASH Rx#:[id number] Oral 500 540 220 Output: Urine Catheter Amount 590 1500 1600 Other: Meal Dinner cottage cheese; fruit cup; chocolate ice cream Breakfast Percent of Meal Consumed 50% 80 25% Feeding Ability Independent Independent Urine Appearance Clear Clear Fem Cath Clear Uretheral (Laura) Clear Urine Color Dark Yellow Bright Yellow Fem Cath Dark Yellow Uretheral (Laura) Dark Yellow Urine Odor Normal Stool Size Large Stool Color Brown Stool Consistency Soft Loose # Bowel Movements 1 Exam: Constitutional; Afebrile, cooperative, alert, not in distress. Respiratory system: Air Entry equal on both sides, No crackles or wheezing, no rhonchi. CVS- Rate rhythm regular, S1,S2 heard, no gallop, no rub. Abdomen- Soft nontender abdomen, no organomegaly, no tenderness, no guarding or rigidity, VOCATIONAL EXAMINER- AOOx3, moving all extremities, no gross focal deficit noted. left leg, erythema improved, swelling better Medical - PN: Obj Da - Labs CBC & Chem 7: 04/22/19 04:39 04/22/19 04:39 Labs: Abnormal Lab Results 04/22/19 04/22/19 04/21/19 04:39 04:39 03:40 RBC 3.75 L Hgb 10.6 L Hct 32.7 L RDW 15.1 H Gran % Lymph % (Auto) 13.6 L Gran # Lymph # (Auto) 1.3 L Lymphocytes % Carbon Dioxide 20 L Glucose 112 H 118 H Uric Acid 2.3 L 2.3 L Calcium 8.5 L Phosphorus GGT 59 H 40 H AST 38 H Alkaline Phosphatase 164 H 125 H C-Reactive Protein Total Protein Albumin 2.6 L 2.6 L Albumin/Globulin Ratio 0.7 L 0.7 L Triglycerides 152 H 04/21/19 04/20/19 04/20/19 03:40 03:14 03:14 RBC 3.85 L Hgb 11.0 L Hct 33.4 L RDW 15.4 H Gran % 80.5 H Lymph % (Auto) 11.0 L Gran # 8.2 H Lymph # (Auto) 1.1 L Lymphocytes % Carbon Dioxide 19 L Glucose 119 H Uric Acid Calcium 8.2 L Phosphorus 2.1 L GGT AST Alkaline Phosphatase C-Reactive Protein 37.6 H Total Protein 5.6 L Albumin 2.5 L Albumin/Globulin Ratio 0.8 L Triglycerides 04/20/19 03:14 RBC 3.70 L Hgb 10.8 L Hct 32.3 L RDW 14.9 H Gran % Lymph % (Auto) Gran # Lymph # (Auto) Lymphocytes % 7 L Carbon Dioxide Glucose Uric Acid Calcium Phosphorus GGT AST Alkaline Phosphatase C-Reactive Protein Total Protein Albumin Albumin/Globulin Ratio Triglycerides Meds: Medications Acetaminophen (Tylenol) 650 mg PO Q4-6HP PRN PRN Reason: PAIN/FEVER > 101 Last Admin: 04/22/19 05:29 Dose: 650 mg Documented by: Hydrocodone Bitart/Acetaminophen ([place] 5/325mg) 1 tab PO Q4HP PRN PRN Reason: PAIN LEVEL 3-6 Last Admin: 04/22/19 07:53 Dose: 1 tab Documented by: Albuterol/Ipratropium (Duoneb) 3 ml NEB Q4HP PRN PRN Reason: Shortness Of Breath Docusate Sodium (Colace) 100 mg PO BID YASH Last Admin: 04/22/19 09:03 Dose: Not Given Documented by: Enoxaparin Sodium (Lovenox) 40 mg SQ DAILY [facility] Last Admin: 04/22/19 09:03 Dose: 40 mg Documented by: Famotidine (Pepcid) 20 mg PO BID [facility] Last Admin: 04/22/19 08:00 Dose: 20 mg Documented by: Gabapentin (Neurontin) 300 mg PO BID [facility] Last Admin: 04/22/19 08:00 Dose: 300 mg Documented by: Potassium Chloride 40 meq/ (Dextrose) 520 mls @ 130 mls/hr IV UD PRN PRN Reason: Potassium < 3 Magnesium Sulfate (Magnesium Sulfate) 2 gm in 50 mls @ 50 mls/hr IV UD PRN PRN Reason: Magnesium </= 1.6 Acetaminophen (Ofirmev) 1,000 mg in 100 mls @ 200 mls/hr IV Q6HP PRN PRN Reason: PAIN/FEVER > 101 Piperacillin Sod/Tazobactam (Sod 3.375 gm/ Dextrose) 50 mls @ 100 mls/hr IV Q6H [facility]; Protocol Last Infusion: 04/22/19 06:47 Dose: Infused Documented by: Vancomycin HCl 1,000 mg/ (Sodium Chloride) 250 mls @ 250 mls/hr IV Q12H [facility] Last Admin: 04/22/19 09:30 Dose: 150 mls/hr Documented by: Lactobacillus Rhamnosus (Culturelle) 1 cap PO BID [facility] Last Admin: 04/22/19 07:59 Dose: 1 cap Documented by: Lactulose (Cephulac) 10 gm PO DAILYP PRN PRN Reason: Constipation Morphine Sulfate (Morphine) 0 mg IV Q3HP PRN PRN Reason: Pain Last Admin: 04/22/19 09:18 Dose: 4 mg Documented by: Ondansetron HCl (Zofran) 4 mg IV Q4HP PRN PRN Reason: Nausea And Vomiting Polyethylene Glycol (Miralax) 17 gm PO DAILYP PRN PRN Reason: Constipation Potassium Chloride (Kdur) 40 meq PO UD PRN PRN Reason: Potssium is 3-3.5 Potassium Chloride (Kdur) 40 meq PO UD PRN PRN Reason: Potassium < 3 Prochlorperazine (Compazine) 10 mg IV Q6HP PRN PRN Reason: Nausea And Vomiting Senna (Senokot) 2 tab PO HSP PRN PRN Reason: Constipation Sodium Chloride (Saline Flush) 10 ml IV Q8 YASH Last Admin: 04/22/19 05:30 Dose: 10 ml Documented by: Tramadol HCl (Ultram) 50 mg PO Q6HP PRN PRN Reason: Pain Vancomycin HCl (Vancomycin Per Pharmacy) 1 order IV UD [facility]; Protocol Zolpidem Tartrate (Ambien) 5 mg PO HSP PRN PRN Reason: Insomnia Last Admin: 04/21/19 21:18 Dose: 5 mg Documented by: Medical - PN: A/P - Time Spent With Patient Total time spent is greater than 50% in coordination of care (as documented) at patient's floor/unit and/or counseling patient: - Narrative A/P Narrative: A: *LLE cellulitis (ankle to upper [place]): -CT no abscess/gas/fasciitis -clinical improvement present, appreciate ID input, pt still has pain. -IV vanco and zosyn to continue, d/c clinda -MRI leg done, shows cellulitis, no myositis, fasicitis *Sepsis: qSofa (3/3) & SIRS (4/4): (now resolved) -intermittent fevers, improved fever curve. -leukocytosis/bandemia resolved -PCT improving -repeat blood and urine cultures, results pending. *Encephalopathy: much improved -mental status seems at baseline *[place] (unknown baseline) on CKD: -resolved *Generalized weakness/deconditioning/falling: -aggressive rehab -pt not very keen with PT due to pain -Start on [facility] tylenol 1gm tid for pain, switch hydrocodone to oxycodone. *Chronic venous insufficiency: Typically wears compression stockings *h/o Migraines *COPD/asthma (not on home O2): *chr pain /neuropathy: on jenna/tramadol -IS -pt/ot -ppx: [facility] Medical - PN: Qual - VTE Deep Vein Thrombosis/Pulmonary Embolism Present on Admission: No
[2019-04-22] MEDS: oxyCODONE HCL 5 MG TABLET PO PRN ×2 (13:07→21:31)
--- NOTE | 2019-04-22 14:26 | Infectious Disease Prog Note ---
Subjective Patient information: Note initiated : 04/22/19 at 1:56 pm Service Date, if different from initiated Date: [] Patient: Nicole Rosenthal a 58 y/o F admitted on 04/19/19 for weakness and nausea and headache. Chief Complaint: [] Interval history: Pt tearful due to pain. denied any n/v/diarrhea. Agrees that fever is not a shigh as was before. Discussed MRI findings, clinical exam and plan to narrow her antibiotics to one. Pt voices understanding. Mother at bedside, answered her questions as well. Objective Objective Narrative: ao x 3, in mild distress due to pain chest cta s1 s2 normal bs ++ nttd left leg: has numerous wrinkles over the skin suggestive of receding edema. The leg is swollen, warm to touch and has some redness. It is tender on palpation. No blisters, ulcers. has some scaling of skin near the ankle. Pt able to move her toes without difficulty - Vital Signs Vital signs: Vital Signs Temp Pulse Resp BP Pulse Ox 04/22/19 11:56 36.9 C 20 125/76 95 04/22/19 08:00 36.3 C 24 H 105/70 92 04/22/19 03:20 37.2 C 104 H 16 115/67 92 04/22/19 01:20 37.9 C H 04/21/19 23:15 37.7 C H 106 H 16 106/54 94 04/21/19 21:05 37.6 C H 04/21/19 19:05 37.7 C H 105 H 16 120/64 91 04/21/19 17:13 37.8 C H 04/21/19 15:54 37.1 C 101 H 16 98/61 97 Intake and Output 04/21/19 04/22/19 04/22/19 21:59 05:59 13:59 Intake Total 094 575 6967 Output Total 590 1500 1600 Balance 210 -660 20 Intake: IV 300 300 300 Zosyn 3.375 gm In Dextrose 5% 50 50 50 in Water 50 ml @ 100 mls/hr IV Q6H [facility] Rx#:[id number] Vancomycin 1,000 mg In Sodium 250 250 250 Chloride 0.9% 250 ml @ 250 mls/ hr IV Q12H [facility] Rx#:[id number] Oral [phone] Output: Urine Catheter Amount 590 1500 1600 Other: Meal Dinner cottage cheese; fruit cup; chocolate ice cream Breakfast Percent of Meal Consumed 50% 80 25% Feeding Ability Independent Independent Urine Appearance Clear Clear Fem Cath Clear Uretheral (Laura) Clear Urine Color Dark Yellow Bright Yellow Fem Cath Dark Yellow Uretheral (Laura) Dark Yellow Urine Odor Normal Stool Size Large Stool Color Brown Stool Consistency Soft Loose # Bowel Movements 1 Weight 92.986 kg Intake & Output: Intake & Output 04/21/19 04/22/19 04/22/19 21:59 05:59 13:59 Intake Total 536 403 2029 Output Total 590 1500 1600 Balance 210 -660 20 Weight 92.986 kg Intake: IV 300 300 300 Zosyn 3.375 gm In Dextrose 5% 50 50 50 in Water 50 ml @ 100 mls/hr IV Q6H [facility] Rx#:[id number] Vancomycin 1,000 mg In Sodium 250 250 250 Chloride 0.9% 250 ml @ 250 mls/ hr IV Q12H [facility] Rx#:[id number] Oral 547 [id number] Output: Urine Catheter Amount 590 1500 1600 Other: Meal Dinner cottage cheese; fruit cup; chocolate ice cream Breakfast Percent of Meal Consumed 50% 80 25% Feeding Ability Independent Independent Urine Appearance Clear Clear Fem Cath Clear Uretheral (Laura) Clear Urine Color Dark Yellow Bright Yellow Fem Cath Dark Yellow Uretheral (Laura) Dark Yellow Urine Odor Normal Stool Size Large Stool Color Brown Stool Consistency Soft Loose # Bowel Movements 1 - Lab 04/22/19 04:39 04/22/19 04:39 Most recent lab results Calcium 8.9 mg/dl (8.6-10.4) 04/22/19 04:39 Phosphorus 2.8 mg/dL (2.7-4.5) 04/22/19 04:39 Magnesium 1.9 mg/dL (1.6-2.5) 04/22/19 04:39 Microbiology 04/21/19 11:15 Blood Blood Culture - Preliminary 04/21/19 11:25 Blood Blood Culture - Preliminary 04/21/19 11:08 Urine - Laura Urine Culture - Preliminary 04/18/19 22:10 Blood Blood Culture - Preliminary 04/18/19 22:13 Blood Blood Culture - Preliminary 04/21/19 11:10 Nasopharynx Respiratory Virus Panel (PCR) - Final 04/21/19 11:10 Nasopharynx Respiratory Panel (PCR) - Final 04/18/19 21:00 Urine - Catheterized Urine Culture - Final 04/19/19 00:25 Nose MRSA (PCR) - Final Medications Active Medications: Acetaminophen (Tylenol) 1,000 mg PO TID [facility] Albuterol/Ipratropium (Duoneb) 3 ml NEB Q4HP PRN PRN Reason: Shortness Of Breath Docusate Sodium (Colace) 100 mg PO BID [facility] Last Admin: 04/22/19 09:03 Dose: Not Given Documented by: COLUMBA Non-Admin Reason: Patient Refused Admin: 04/21/19 21:04 Dose: 100 mg Documented by: SEBAS Enoxaparin Sodium (Lovenox) 40 mg SQ DAILY [facility] Last Admin: 04/22/19 09:03 Dose: 40 mg Documented by: COLUMBA Famotidine (Pepcid) 20 mg PO BID [facility] Last Admin: 04/22/19 08:00 Dose: 20 mg Documented by: Admin: 04/21/19 21:04 Dose: 20 mg Documented by: SEBAS Gabapentin (Neurontin) 300 mg PO BID [facility] Last Admin: 04/22/19 08:00 Dose: 300 mg Documented by: Admin: 04/21/19 21:03 Dose: 300 mg Documented by: SEBAS Potassium Chloride 40 meq/ (Dextrose) 520 mls @ 130 mls/hr IV UD PRN PRN Reason: Potassium < 3 Magnesium Sulfate (Magnesium Sulfate) 2 gm in 50 mls @ 50 mls/hr IV UD PRN PRN Reason: Magnesium </= 1.6 Acetaminophen (Ofirmev) 1,000 mg in 100 mls @ 200 mls/hr IV Q6HP PRN PRN Reason: PAIN/FEVER > 101 Vancomycin HCl 1,000 mg/ (Sodium Chloride) 250 mls @ 250 mls/hr IV Q12H [facility] Last Infusion: 04/22/19 11:30 Dose: 0 mls/hr Documented by: Admin: 04/22/19 09:30 Dose: 150 mls/hr Documented by: Infusion: 04/21/19 23:00 Dose: 0 mls/hr Documented by: Admin: 04/21/19 21:07 Dose: 150 mls/hr Documented by: Infusion: 04/21/19 14:28 Dose: 0 mls/hr Documented by: Admin: 04/21/19 12:10 Dose: 250 mls/hr Documented by: MALLORY Lactobacillus Rhamnosus (Culturelle) 1 cap PO BID [facility] Last Admin: 04/22/19 07:59 Dose: 1 cap Documented by: Admin: 04/21/19 21:04 Dose: 1 cap Documented by: SEBAS Lactulose (Cephulac) 10 gm PO DAILYP PRN PRN Reason: Constipation Morphine Sulfate (Morphine) 0 mg IV Q3HP PRN PRN Reason: Pain Last Admin: 04/22/19 09:18 Dose: 4 mg Documented by: Admin: 04/21/19 17:14 Dose: 2 mg Documented by: Admin: 04/21/19 13:53 Dose: 2 mg Documented by: MALLORY Ondansetron HCl (Zofran) 4 mg IV Q4HP PRN PRN Reason: Nausea And Vomiting Oxycodone HCl (Roxicodone) 5 mg PO Q4HP PRN PRN Reason: PAIN LEVEL 3-6 Last Admin: 04/22/19 13:07 Dose: 5 mg Documented by: COLUMBA Polyethylene Glycol (Miralax) 17 gm PO DAILYP PRN PRN Reason: Constipation Potassium Chloride (Kdur) 40 meq PO UD PRN PRN Reason: Potssium is 3-3.5 Potassium Chloride (Kdur) 40 meq PO UD PRN PRN Reason: Potassium < 3 Prochlorperazine (Compazine) 10 mg IV Q6HP PRN PRN Reason: Nausea And Vomiting Senna (Senokot) 2 tab PO HSP PRN PRN Reason: Constipation Sodium Chloride (Saline Flush) 10 ml IV Q8 [facility] Last Admin: 04/22/19 05:30 Dose: 10 ml Documented by: Admin: 04/21/19 21:07 Dose: 10 ml Documented by: Admin: 04/21/19 16:03 Dose: 10 ml Documented by: MALLORY Tramadol HCl (Ultram) 50 mg PO Q6HP PRN PRN Reason: Pain Vancomycin HCl (Vancomycin Per Pharmacy) 1 order IV UD [facility]; Protocol Zolpidem Tartrate (Ambien) 5 mg PO HSP PRN PRN Reason: Insomnia Last Admin: 04/21/19 21:18 Dose: 5 mg Documented by: KNF Assessment and Plan - Narrative A/P Narrative: A: 1. Left leg and foot cellulitis: getting better clinically (low fever curve, normal WBC, wrinkling of skin of left leg suggesting decreasing edema) - imaging (MRI, CT) neg for deeper infection - all cultures (blood, urine) neg so far 2. Sepsis: resolved - qSOFA score 1 today, SOFA score 0 - likely from the left leg infection Recommendations: - Continue IV Vanc per pharmacy assisted dosing - Stop IV Zosyn 3.375 gm q6 hrs - If pt afebrile, and continues to get better; will de-escalate to PO antibiotics tomorrow - Pt counseled to keep her left leg and foot elevated will follow Cirilo Caal MD Infectious diseases
[2019-04-22] MEDS: ACETAMINOPHEN 325 MG TABLET PO SCH ×2 (14:45→21:29)
[2019-04-22] MEDS ORDERED: SUMAtriptan SUCCINATE 25 MG TABLET PO ONE (19:34)
[2019-04-22] MEDS: ZOLPIDEM 5 MG TABLET PO PRN (21:38)
[2019-04-23] MEDS: 0.9 % SODIUM CHLORIDE 10 ML SYRINGE IV SCH ×3 (05:46→21:30)
[2019-04-23 06:31] LABS: Basophils # (Auto) 0 K/mcL (0.0-0.3); Basophils % (Auto) 0.1 % (0.0-2.0); Eosinophils # (Auto) 0.3 K/mcL (0.0-0.7); Eosinophils % (Auto) 2.9 % (0.0-7.0); Granulocytes % (Auto) 75.9 % (38.0-78.0); Hematocrit 32.3 % (36.0-48.0); Hemoglobin 10.6 g/dL (12.0-15.0); Lymphocytes # (Auto) 1.5 K/mcL (1.5-4.8); Lymphocytes % (Auto) 13.8 % (15.5-49.0); Mean Cell Volume 87.8 fL (80.0-100.0); Mean Corpuscular HGB Conc 32.7 g/dL (31.0-36.0); Mean Platelet Volume 7.5 fL (7.4-10.4); Monocytes # (Auto) 0.8 K/mcL (0.1-0.9); Monocytes % (Auto) 7.3 % (1.0-12.0); Platelet Count 342 K/mcL (140-440); RBC 3.68 M/mcL (4.00-5.20); Red Cell Distribution Width 15.6 % (11.5-14.5); WBC 10.6 K/mcL (4.5-11.0)
[2019-04-23 06:56] LABS: ALT/SGPT 48 U/l (0-40); AST/SGOT 60 U/l (0-37); Albumin 2.5 gm/dL (3.2-5.2); Albumin/Globulin Ratio 0.7 (1.0-2.3); Alkaline Phosphatase 238 U/L (39-117); Bilirubin,Direct < 0.2 mg/dL (0.0-0.3); Bilirubin,Total 0.4 mg/dL (0.0-1.0); Blood Urea Nitrogen 11 mg/dl (6-20); Calcium 8.8 mg/dl (8.6-10.4); Carbon Dioxide 25 mmol/L (22-30); Chloride 108 mmol/L (96-108); Gamma Glutamyl Transpeptidase 103 U/L (5-36); Globulin 3.7 gm/dL (2.2-3.7); Glomerular Filtration Rate 70; Glucose 115 mg/dL (70-105); Lactate Dehydrogenase 245 U/L (94-250); Magnesium 1.9 mg/dL (1.6-2.5); Phosphorous 3.1 mg/dL (2.7-4.5); Potassium 3.6 mmol/L (3.3-5.1); Sodium 147 mmol/L (133-145); Triglycerides 140 mg/dl (<150)
[2019-04-23] MEDS: LACTOBACILLUS 1 CAPSULE PO SCH ×2 (08:42→21:30)
[2019-04-23] MEDS: ACETAMINOPHEN 325 MG TABLET PO SCH ×2 (08:42→17:15)
[2019-04-23] MEDS: FAMOTIDINE 20 MG TABLET PO SCH ×2 (08:45→21:28)
[2019-04-23] MEDS: GABAPENTIN 300 MG CAPSULE PO SCH ×2 (08:45→21:29)
[2019-04-23] MEDS: DOCUSATE SODIUM 100 MG CAPSULE PO SCH ×2 (08:45→21:29)
[2019-04-23] MEDS: ENOXAPARIN 40 MG/0.4 ML SYRINGE SQ SCH (08:46)
[2019-04-23] MEDS: VANCOMYCIN 1,000 MG in 0.9 % SODIUM CHLORIDE 250 ML IV SCH (08:52)
--- NOTE | 2019-04-23 10:44 | Infectious Disease Prog Note ---
Subjective Patient information: Note initiated : 04/23/19 at 10:42 am Service Date, if different from initiated Date: [] Patient: Nicole Rosenthal a 58 y/o F admitted on 04/19/19 for weakness and nausea and headache. Chief Complaint: [] Interval history: Pt reports feeling slight better. Denied any fever, chills, n/v. Afebrile. Endorses diarrhea, but according to nursing no loose stools reported (confirmed in I&Os). Shared that we could switch her to oral antibiotics for few days to finish the antibiotic course. Pt voices understanding. Objective Objective Narrative: ao x 3, in mild distress due to pain no thrush Left leg and feet: multiple wrinkles over the skin (more compared to yesterday), warm, tender, redness improving. No lesions. Has dry scaling over the ankle and feet. - Vital Signs Vital signs: Vital Signs Temp Pulse Resp BP BP Pulse Ox 04/23/19 08:00 37.2 C 107 H 18 135/81 93 04/23/19 03:42 37.1 C 101 H 16 133/75 97 04/22/19 23:52 36.7 C 106 H 16 121/71 92 04/22/19 19:48 37.3 C H 106 H 16 117/69 96 04/22/19 16:00 37.5 C H 105 H 16 110/59 94 04/22/19 14:45 36.9 C 04/22/19 11:56 36.9 C 20 125/76 95 Intake and Output 04/22/19 04/23/19 04/23/19 21:59 05:59 13:59 Intake Total 250 Output Total 1225 Balance -975 Intake: IV 250 Vancomycin 1,000 mg In Sodium 250 Chloride 0.9% 250 ml @ 250 mls/ hr IV Q12H [facility] Rx#:[id number] Output: Void Amount 1225 Other: Urine Appearance Clear Urine Color Bright Yellow # Voids 2 Weight 90.809 kg Intake & Output: Intake & Output 04/22/19 04/23/19 04/23/19 21:59 05:59 13:59 Intake Total 250 Output Total 1225 Balance -975 Weight 90.809 kg Intake: IV 250 Vancomycin 1,000 mg In Sodium 250 Chloride 0.9% 250 ml @ 250 mls/ hr IV Q12H [facility] Rx#:[id number] Output: Void Amount 1225 Other: Urine Appearance Clear Urine Color Bright Yellow # Voids 2 - Lab 04/23/19 04:48 04/23/19 04:48 Most recent lab results Calcium 8.8 mg/dl (8.6-10.4) 04/23/19 04:48 Phosphorus 3.1 mg/dL (2.7-4.5) 04/23/19 04:48 Magnesium 1.9 mg/dL (1.6-2.5) 04/23/19 04:48 Microbiology 04/21/19 11:08 Urine - Laura Urine Culture - Final 04/18/19 22:10 Blood Blood Culture - Preliminary 04/18/19 22:13 Blood Blood Culture - Preliminary 04/21/19 11:15 Blood Blood Culture - Preliminary 04/21/19 11:25 Blood Blood Culture - Preliminary 04/21/19 11:10 Nasopharynx Respiratory Virus Panel (PCR) - Final 04/21/19 11:10 Nasopharynx Respiratory Panel (PCR) - Final 04/18/19 21:00 Urine - Catheterized Urine Culture - Final 04/19/19 00:25 Nose MRSA (PCR) - Final Medications Active Medications: Acetaminophen (Tylenol) 1,000 mg PO TID [facility] Last Admin: 04/23/19 08:42 Dose: 1,000 mg Documented by: DWAYNE Cosigned by: CELINA Admin: 04/22/19 21:29 Dose: 975 mg Documented by: Admin: 04/22/19 14:45 Dose: 1,000 mg Documented by: COLUMBA Albuterol/Ipratropium (Duoneb) 3 ml NEB Q4HP PRN PRN Reason: Shortness Of Breath Docusate Sodium (Colace) 100 mg PO BID [facility] Last Admin: 04/23/19 08:45 Dose: 100 mg Documented by: DWAYNE Cosigned by: CELINA Admin: 04/22/19 21:29 Dose: 100 mg Documented by: Admin: 04/22/19 09:03 Dose: Not Given Documented by: COLUMBA Non-Admin Reason: Patient Refused Admin: 04/21/19 21:04 Dose: 100 mg Documented by: SEBAS Enoxaparin Sodium (Lovenox) 40 mg SQ DAILY [facility] Last Admin: 04/23/19 08:46 Dose: 40 mg Documented by: DWAYNE Cosigned by: CELINA Admin: 04/22/19 09:03 Dose: 40 mg Documented by: COLUMBA Famotidine (Pepcid) 20 mg PO BID [facility] Admin: 04/23/19 08:45 Dose: 20 mg Documented by: DWAYNE Cosigned by: CELINA Admin: 04/22/19 21:29 Dose: 20 mg Documented by: Admin: 04/22/19 08:00 Dose: 20 mg Documented by: Admin: 04/21/19 21:04 Dose: 20 mg Documented by: SEBAS Gabapentin (Neurontin) 300 mg PO BID [facility] Admin: 04/23/19 08:45 Dose: 300 mg Documented by: DWAYNE Cosigned by: CELINA Admin: 04/22/19 21:29 Dose: 300 mg Documented by: Admin: 04/22/19 08:00 Dose: 300 mg Documented by: Admin: 04/21/19 21:03 Dose: 300 mg Documented by: SEBAS Potassium Chloride 40 meq/ (Dextrose) 520 mls @ 130 mls/hr IV UD PRN PRN Reason: Potassium < 3 Magnesium Sulfate (Magnesium Sulfate) 2 gm in 50 mls @ 50 mls/hr IV UD PRN PRN Reason: Magnesium </= 1.6 Acetaminophen (Ofirmev) 1,000 mg in 100 mls @ 200 mls/hr IV Q6HP PRN PRN Reason: PAIN/FEVER > 101 Vancomycin HCl 1,000 mg/ (Sodium Chloride) 250 mls @ 250 mls/hr IV Q12H [facility] Last Admin: 04/23/19 08:52 Dose: 133 mls/hr Documented by: Infusion: 04/22/19 23:24 Dose: 133 mls/hr Documented by: Admin: 04/22/19 21:31 Dose: 133 mls/hr Documented by: Infusion: 04/22/19 11:30 Dose: 0 mls/hr Documented by: Admin: 04/22/19 09:30 Dose: 150 mls/hr Documented by: Infusion: 04/21/19 23:00 Dose: 0 mls/hr Documented by: Admin: 04/21/19 21:07 Dose: 150 mls/hr Documented by: Infusion: 04/21/19 14:28 Dose: 0 mls/hr Documented by: Admin: 04/21/19 12:10 Dose: 250 mls/hr Documented by: MALLORY Lactobacillus Rhamnosus (Culturelle) 1 cap PO BID [facility] Last Admin: 04/23/19 08:42 Dose: 1 cap Documented by: DWAYNE Cosigned by: CELINA Admin: 04/22/19 21:29 Dose: 1 cap Documented by: Admin: 04/22/19 07:59 Dose: 1 cap Documented by: Admin: 04/21/19 21:04 Dose: 1 cap Documented by: SEBAS Lactulose (Cephulac) 10 gm PO DAILYP PRN PRN Reason: Constipation Morphine Sulfate (Morphine) 0 mg IV Q3HP PRN PRN Reason: Pain Last Admin: 04/23/19 08:52 Dose: 3 mg Documented by: Admin: 04/22/19 17:43 Dose: 3 mg Documented by: Admin: 04/22/19 09:18 Dose: 4 mg Documented by: Admin: 04/21/19 17:14 Dose: 2 mg Documented by: Admin: 04/21/19 13:53 Dose: 2 mg Documented by: MALLORY Ondansetron HCl (Zofran) 4 mg IV Q4HP PRN PRN Reason: Nausea And Vomiting Oxycodone HCl (Roxicodone) 5 mg PO Q4HP PRN PRN Reason: PAIN LEVEL 3-6 Last Admin: 04/22/19 21:31 Dose: 5 mg Documented by: Admin: 04/22/19 13:07 Dose: 5 mg Documented by: COLUMBA Polyethylene Glycol (Miralax) 17 gm PO DAILYP PRN PRN Reason: Constipation Potassium Chloride (Kdur) 40 meq PO UD PRN PRN Reason: Potssium is 3-3.5 Potassium Chloride (Kdur) 40 meq PO UD PRN PRN Reason: Potassium < 3 Prochlorperazine (Compazine) 10 mg IV Q6HP PRN PRN Reason: Nausea And Vomiting Senna (Senokot) 2 tab PO HSP PRN PRN Reason: Constipation Sodium Chloride (Saline Flush) 10 ml IV Q8 [facility] Last Admin: 04/23/19 05:46 Dose: Not Given Documented by: PRATIK Non-Admin Reason: Patient Asleep Admin: 04/22/19 22:28 Dose: 10 ml Documented by: Admin: 04/22/19 14:47 Dose: 10 ml Documented by: Admin: 04/22/19 05:30 Dose: 10 ml Documented by: Admin: 04/21/19 21:07 Dose: 10 ml Documented by: Admin: 04/21/19 16:03 Dose: 10 ml Documented by: MALLORY Tramadol HCl (Ultram) 50 mg PO Q6HP PRN PRN Reason: Pain Vancomycin HCl (Vancomycin Per Pharmacy) 1 order IV UD [facility]; Protocol Zolpidem Tartrate (Ambien) 5 mg PO HSP PRN PRN Reason: Insomnia Last Admin: 04/22/19 21:38 Dose: 5 mg Documented by: Admin: 04/21/19 21:18 Dose: 5 mg Documented by: SEBAS Assessment and Plan - Narrative A/P Narrative: A: 1. Left leg and foot cellulitis: getting better clinically (afebrile, normal WBC, increased wrinkling of skin of left leg suggesting decreasing edema) - imaging (MRI, CT) neg for deeper infection - all cultures (blood, urine) neg so far - s/p 5 days of IV Vancomycin and 4 days of IV zosyn Pain in leg could be subjective (low pain threshold) or due to non-infectious causes such as post-phlebitic syndrome. Since pt didnot have DVT on the CT or MRI imaging, the likelihood for post-phlebitic syndrome is low 2. Sepsis: resolved - qSOFA score 0 today, SOFA score 0 Recommendations: - Stop IV Vanc. Given clinical improvement, pt could be switched to oral Cefuroxime axetil 500 mg bid for another 5 days [stop date 04/27/19] - Pt counseled to keep her left leg and foot elevated - I would recommend f/u with PCP after discharge to make sure her leg swelling/redness goes away completely. Please don't hesitate to call my office ([phone]) for any questions or if pt doesnt get better in ters of her leg symptoms. Cirilo Caal MD Infectious diseases
[2019-04-23] MEDS: oxyCODONE HCL 5 MG TABLET PO PRN ×3 (11:12→21:27)
--- NOTE | 2019-04-23 12:27 | Internal Med Progress Note ---
Medical - PN: Subj Patient information: Note initiated : 04/23/19 at 12:25 pm Service Date, if different from initiated Date: [] Patient: Nicole Rosenthal a 58 y/o F admitted on 04/19/19 for weakness and nausea and headache. Chief Complaint: [] Interval history: Ms. Rosenthal is a 58 year old F 58-year-old female who has been weak/nausea/headaches that started Friday. And she fell Friday in the bathroom possibly hitting her head, possibly fainting. She has history of migraines. She has left ankle pain and swelling and redness developing. And some rib pain where she thinks she might of hit when she fell. She reports dark urine. She become more lethargic per her friend and has had poor oral intake. She Patient complains of fevers and chills to me. No chest pain or shortness of breath or cough. In the ED she was worked up found to have a cellulitis of left leg with a septic picture. And acute kidney injury. CT of the brain and neck were unremarkable and venous Doppler leg was unremar kable as well as ankle x-ray. Patient quite lethargic and history is assisted by her friend. 04/19 Planes of headaches fevers chills. Still very weak. Has left lower extremity pain. Was eating breakfast this morning and tolerated it well. Now resting in bed again. 04/20 States poor sleep, but otherwise no events overnight. Plans to mild headache. And leg is still painful. 04/21 Patient seen and examined, still has significant pain in the left lower extremity still has persistent low-grade fevers and chills. Repeat cultures. Infectious disease consulted advised repeating the culture, continue vancomycin and Zosyn discontinue clindamycin, advised to get an MRI of the left lower extre mity will order same. Patient is hemodynamically stable, does not need any oxygen at least when she is awake, labs are showing improvement blood pressure is better She will be transferred to [facility] status 04/22 Patient seen examined, no acute issues, tolerating po diet well still has significant pain in the left leg MRI shows cellulilitis clinically the leg appears better, labs stable, wbc normalized. only low grade fever, but pt feels tired 04/23-patient doing better. Ongoing wound care. Discontinue vancomycin as per ID physician. Anticipate discharge in 24 hours on oral medications. White count trending down. Cellulitis much improved negative imaging so far. Cultures negative so far. Sepsis resolved. Infectious disease recommends additional 5 days cefuroxime ending 04/27. - Constitutional Vitals: Vital Signs Temp Pulse Resp BP Pulse Ox 99.0 F 110 H 18 110/60 91 04/23/19 08:00 04/23/19 11:34 04/23/19 11:34 04/23/19 11:34 04/23/19 11:34 Period Temp Pulse Resp BP Sys/[place]o Pulse Ox Last 24 Hr 98.1 F-99.5 F 101-110 16-18 110-135/59-81 91-97 Intake and Output 04/22/19 04/23/19 04/23/19 21:59 05:59 13:59 Intake Total 250 250 Output Total 1225 400 Balance -975 -150 Weight 200 lb 3.2 oz 200 lb 3.2 oz Patient Weight 04/24/19 05:59 Weight 200 lb 3.2 oz Intake & Output: Intake & Output 04/22/19 04/23/19 04/23/19 21:59 05:59 13:59 Intake Total 250 250 Output Total 1225 400 Balance -975 -150 Weight 200 lb 3.2 oz 200 lb 3.2 oz Intake: IV 250 250 Vancomycin 1,000 mg In Sodium 250 250 Chloride 0.9% 250 ml @ 250 mls/ hr IV Q12H [facility] Rx#:[id number] Output: Void Amount 1225 400 Other: Urine Appearance Clear Clear Urine Color Bright Yellow Dark Yellow Urine Odor Normal # Voids 2 General appearance: no acute distress Exam: Alert oriented Nonlabored breathing Much improved pain and swelling left lower extremity/calf and ankle No anxiety Medical - PN: Obj Da - Labs CBC & Chem 7: 04/23/19 04:48 04/23/19 04:48 Labs: Abnormal Lab Results 04/23/19 04/23/19 04/22/19 04:48 04:48 04:39 RBC 3.68 L Hgb 10.6 L Hct 32.3 L RDW 15.6 H Gran % Lymph % (Auto) 13.8 L Gran # 8.1 H Lymph # (Auto) Sodium 147 H Carbon Dioxide Glucose 115 H 112 H Uric Acid 2.3 L Calcium GGT 103 H 59 H AST 60 H 38 H ALT 48 H Alkaline Phosphatase 238 H 164 H Albumin 2.5 L 2.6 L Albumin/Globulin Ratio 0.7 L 0.7 L Triglycerides 04/22/19 04/21/19 04/21/19 04:39 03:40 03:40 RBC 3.75 L 3.85 L Hgb 10.6 L 11.0 L Hct 32.7 L 33.4 L RDW 15.1 H 15.4 H Gran % 80.5 H Lymph % (Auto) 13.6 L 11.0 L Gran # 8.2 H Lymph # (Auto) 1.3 L 1.1 L Sodium Carbon Dioxide 20 L Glucose 118 H Uric Acid 2.3 L Calcium 8.5 L GGT 40 H AST ALT Alkaline Phosphatase 125 H Albumin 2.6 L Albumin/Globulin Ratio 0.7 L Triglycerides 152 H Meds: Medications Acetaminophen (Tylenol) 1,000 mg PO TID [facility] Last Admin: 04/23/19 08:42 Dose: 1,000 mg Documented by: Albuterol/Ipratropium (Duoneb) 3 ml NEB Q4HP PRN PRN Reason: Shortness Of Breath Cefuroxime Axetil (Ceftin) 500 mg PO Q12 [facility]; Protocol Docusate Sodium (Colace) 100 mg PO BID [facility] Last Admin: 04/23/19 08:45 Dose: 100 mg Documented by: Enoxaparin Sodium (Lovenox) 40 mg SQ DAILY [facility] Last Admin: 04/23/19 08:46 Dose: 40 mg Documented by: Famotidine (Pepcid) 20 mg PO BID [facility] Last Admin: 04/23/19 08:45 Dose: 20 mg Documented by: Gabapentin (Neurontin) 300 mg PO BID [facility] Last Admin: 04/23/19 08:45 Dose: 300 mg Documented by: Potassium Chloride 40 meq/ (Dextrose) 520 mls @ 130 mls/hr IV UD PRN PRN Reason: Potassium < 3 Magnesium Sulfate (Magnesium Sulfate) 2 gm in 50 mls @ 50 mls/hr IV UD PRN PRN Reason: Magnesium </= 1.6 Acetaminophen (Ofirmev) 1,000 mg in 100 mls @ 200 mls/hr IV Q6HP PRN PRN Reason: PAIN/FEVER > 101 Lactobacillus Rhamnosus (Culturelle) 1 cap PO BID [facility] Last Admin: 04/23/19 08:42 Dose: 1 cap Documented by: Lactulose (Cephulac) 10 gm PO DAILYP PRN PRN Reason: Constipation Morphine Sulfate (Morphine) 0 mg IV Q3HP PRN PRN Reason: Pain Last Admin: 04/23/19 08:52 Dose: 3 mg Documented by: Ondansetron HCl (Zofran) 4 mg IV Q4HP PRN PRN Reason: Nausea And Vomiting Oxycodone HCl (Roxicodone) 5 mg PO Q4HP PRN PRN Reason: PAIN LEVEL 3-6 Last Admin: 04/23/19 11:12 Dose: 5 mg Documented by: Polyethylene Glycol (Miralax) 17 gm PO DAILYP PRN PRN Reason: Constipation Potassium Chloride (Kdur) 40 meq PO UD PRN PRN Reason: Potssium is 3-3.5 Potassium Chloride (Kdur) 40 meq PO UD PRN PRN Reason: Potassium < 3 Prochlorperazine (Compazine) 10 mg IV Q6HP PRN PRN Reason: Nausea And Vomiting Senna (Senokot) 2 tab PO HSP PRN PRN Reason: Constipation Sodium Chloride (Saline Flush) 10 ml IV Q8 [facility] Last Admin: 04/23/19 05:46 Dose: Not Given Documented by: Tramadol HCl (Ultram) 50 mg PO Q6HP PRN PRN Reason: Pain Zolpidem Tartrate (Ambien) 5 mg PO HSP PRN PRN Reason: Insomnia Last Admin: 04/22/19 21:38 Dose: 5 mg Documented by: Medical - PN: A/P - Time Spent With Patient Total time spent is greater than 50% in coordination of care (as documented) at patient's floor/unit and/or counseling patient: 15 - 24 minutes - Narrative A/P Narrative: * Cellulitis/lymphangitis without CT evidence of abscess or osteomyelitis. C ontinue antibiotics per ID. White count improved. D escalated to cefuroxime to end on 04/27 per ID * Sepsis clinically resolved * Acute renal status secondary to above -clinically resolved * LEIGHTON secondary to sepsis end organ dysfunction, clinically resolved * Generalized weakness and deconditioning, ongoing PT OT/nutrition support * history of migraines currently stable * Chronic pain on home meds * History of COPD/asthma on bronchodilators as needed * Prophylaxis enoxaparin Plan * De-escalate antibiotics as per ID * Continue PT OT * Discharge planning Medical - PN: Qual - VTE Deep Vein Thrombosis/Pulmonary Embolism Present on Admission: No
[2019-04-23] MEDS ORDERED: ACETAMINOPHEN 500 MG TABLET PO ONE (15:45)
[2019-04-23] MEDS: ACETAMINOPHEN 500 MG TABLET PO SCH (21:29)
[2019-04-23] MEDS: CEFUROXIME 500 MG TABLET PO SCH (21:30)
[2019-04-23] MEDS: ZOLPIDEM 5 MG TABLET PO PRN (21:35)
[2019-04-24] MEDS: 0.9 % SODIUM CHLORIDE 10 ML SYRINGE IV SCH ×2 (05:43→14:00)
[2019-04-24 05:52] LABS: Basophils # (Auto) 0 K/mcL (0.0-0.3); Basophils % (Auto) 0.2 % (0.0-2.0); Eosinophils # (Auto) 0.4 K/mcL (0.0-0.7); Eosinophils % (Auto) 3.8 % (0.0-7.0); Granulocytes % (Auto) 74.6 % (38.0-78.0); Hematocrit 32.6 % (36.0-48.0); Hemoglobin 10.6 g/dL (12.0-15.0); Lymphocytes # (Auto) 1.4 K/mcL (1.5-4.8); Lymphocytes % (Auto) 14.5 % (15.5-49.0); Mean Corpuscular HGB Conc 32.4 g/dL (31.0-36.0); Mean Platelet Volume 7.1 fL (7.4-10.4); Monocytes # (Auto) 0.7 K/mcL (0.1-0.9); Monocytes % (Auto) 6.9 % (1.0-12.0); Platelet Count 437 K/mcL (140-440); Red Cell Distribution Width 15.5 % (11.5-14.5); WBC 9.5 K/mcL (4.5-11.0)
[2019-04-24 05:55] LABS: ALT/SGPT 62 U/l (0-40); AST/SGOT 72 U/l (0-37); Albumin 2.8 gm/dL (3.2-5.2); Albumin/Globulin Ratio 0.7 (1.0-2.3); Alkaline Phosphatase 294 U/L (39-117); Bilirubin,Direct < 0.2 mg/dL (0.0-0.3); Bilirubin,Total 0.4 mg/dL (0.0-1.0); Blood Urea Nitrogen 14 mg/dl (6-20); Calcium 8.8 mg/dl (8.6-10.4); Carbon Dioxide 28 mmol/L (22-30); Chloride 105 mmol/L (96-108); Gamma Glutamyl Transpeptidase 148 U/L (5-36); Globulin 3.9 gm/dL (2.2-3.7); Glomerular Filtration Rate 70; Glucose 97 mg/dL (70-105); Lactate Dehydrogenase 238 U/L (94-250); Magnesium 1.9 mg/dL (1.6-2.5); Phosphorous 3.6 mg/dL (2.7-4.5); Potassium 3.8 mmol/L (3.3-5.1); Sodium 146 mmol/L (133-145); Triglycerides 120 mg/dl (<150); Uric Acid 3.8 mg/dL (2.5-8.0)
[2019-04-24] MEDS: DOCUSATE SODIUM 100 MG CAPSULE PO SCH ×2 (08:31→08:36)
[2019-04-24] MEDS: oxyCODONE HCL 5 MG TABLET PO PRN (08:31)
[2019-04-24] MEDS: CEFUROXIME 500 MG TABLET PO SCH (08:32)
[2019-04-24] MEDS: LACTOBACILLUS 1 CAPSULE PO SCH (08:32)
[2019-04-24] MEDS: ACETAMINOPHEN 500 MG TABLET PO SCH (08:32)
[2019-04-24] MEDS: FAMOTIDINE 20 MG TABLET PO SCH (08:32)
[2019-04-24] MEDS: GABAPENTIN 300 MG CAPSULE PO SCH (08:32)
[2019-04-24] MEDS: ENOXAPARIN 40 MG/0.4 ML SYRINGE SQ SCH (08:33)
--- NOTE | 2019-04-24 12:47 | Discharge Summary ---
Medical - DS: Prov Patient information: Note initiated : 04/24/19 at 12:44 pm Service Date, if different from initiated Date: [] Patient: Nicole Rosenthal 58 y/o F admitted on 04/19/19 for weakness and nausea and headache. Chief Complaint: [] Date of admission: 04/19/19 00:11 Discharge date: 04/24/19 Primary care physician: Martina Thomson Consults: 04/18/19 Consult to Physician [CONS] Stat Comment: Consulting Provider: Gualberto Lopez Reason For Exam: Physician to Consult 04/21/19 10:47 Consult to Infectious Disease [CONS] Routine Comment: cellulitis Consulting Provider: Cirilo Caal Reason For Exam: Physician to Consult Medical - DS: Meds - Discharge Medications Prescriptions: Cefuroxime [Ceftin] 500 mg PO Q12 #8 tab Lactobacillus [Culturelle] 1 cap PO BID #20 cap Active and Home Medications: Home Medications Gabapentin [Neurontin] 300 mg PO BID 04/18/19 [History Confirmed 04/18/19 Last Taken Unknown] traMADol [Ultram] 50 mg PO Q6HP PRN 04/18/19 [History Confirmed 04/18/19 Last Taken Unknown] Cefuroxime [Ceftin] 500 mg PO Q12 #8 tab 04/24/19 [Rx Last Taken Unknown] Lactobacillus [Culturelle] 1 cap PO BID #20 cap 04/24/19 [Rx Last Taken Unknown] Medical - DS: Hosp Hospital course: Discharge diagnoses * Cellulitis/lymphangitis without CT evidence of abscess or osteomyelitis. Continue antibiotics per ID. White count improved. Continue Additional 4 days oral cefuroxime per ID. * Sepsis clinically resolved * Acute renal status secondary to above -clinically resolved * [place] secondary to sepsis end organ dysfunction, clinically resolved * Generalized weakness and deconditioning, ongoing PT OT/nutrition support * history of migraines currently stable * Chronic pain on home meds * History of COPD/asthma on bronchodilators as needed Brief hospital course 58-year-old female who has been weak/nausea/headaches that started Friday. And she fell Friday in the bathroom possibly hitting her head, possibly fainting. She has history of migraines. She has left ankle pain and swelling and redness developing. And some rib pain where she thinks she might of hit when she fell. She reports dark urine. She become more lethargic per her friend and has had poor oral intake. She Patient complains of fevers and chills to me. No chest pain or shortness of breath or cough. In the ED she was worked up found to have a cellulitis of left leg with a septic picture. And acute kidney injury. CT of the brain and neck were unremarkable and venous Doppler leg was unremarkable as well as ankle x-ray. Patient quite lethargic and history is assisted by her friend. 04/19 Planes of headaches fevers chills. Still very weak. Has left lower extremity pain. Was eating breakfast this morning and tolerated it well. Now resting in bed again. 04/20 States poor sleep, but otherwise no events overnight. Plans to mild headache. And leg is still painful. 04/21 Patient seen and examined, still has significant pain in the left lower extremity still has persistent low-grade fevers and chills. Repeat cultures. Infectious disease consulted advised repeating the culture, continue vancomycin and Zosyn discontinue clindamycin, advised to get an MRI of the left lower extremity will order same. Patient is hemodynamically stable, does not need any oxygen at least when she is awake, labs are showing improvement blood pressure is better She will be transferred to [facility] status 04/22 Patient seen examined, no acute issues, tolerating po diet well still has significant pain in the left leg MRI shows cellulilitis clinically the leg appears better, labs stable, wbc normalized. only low grade fever, but pt feels tired 04/23-patient doing better. Ongoing wound care. Discontinue vancomycin as per ID physician. Anticipate discharge in 24 hours on oral medications. White count trending down. Cellulitis much improved negative imaging so far. Cultures negative so far. Sepsis resolved. Infectious disease recommends additional 5 days cefuroxime ending 04/27 04/24-patient doing well. No overnight events. Antibiotics de-escalate to cefuroxime as per ID specialist. Patient discharged in stable state with advice to follow up with primary care physician after completing additional 4 days antibiotics. Continue limb elevation. Detailed instructions as below Discharge diagnosis: . - Time Spent with Patient Total time spent providing and/or coordinating discharge services: Greater than 30 minutes Medical - DS: Exam - Constitutional Vitals: Vital Signs Temp Pulse Resp BP BP Pulse Ox 04/24/19 11:40 99.0 F 101 H 18 112/62 91 05/25/19 08:00 98.7 F 108 H 19 137/77 94 04/24/19 04:00 99 F 110 H 16 129/77 94 04/23/19 23:40 98.8 F 96 H 16 113/64 90 04/23/19 19:58 98.3 F 101 H 16 108/64 92 04/23/19 16:00 98.7 F 93 H 16 101/63 Intake and Output 04/23/19 04/24/19 04/24/19 21:59 05:59 13:59 Intake Total 600 600 360 Output Total 400 Balance 600 200 360 Intake: Oral 600 600 360 Output: Void Amount 400 Other: Meal Breakfast Percent of Meal Consumed 100% Feeding Ability Independent Urine Appearance Clear Urine Color Pale Urine Odor Normal Stool Size Moderate Small Stool Color Brown Brown Stool Consistency Loose Soft Loose # Voids 1 # Bowel Movements 1 Weight 198 lb 6.4 oz Medical - DS: Data Labs on day of discharge: Labs from last 24 hours 04/24/19 04/24/19 04:24 04:24 WBC 9.5 RBC 3.70 L Hgb 10.6 L Hct 32.6 L MCV 88.0 MCH 28.5 MCHC 32.4 RDW 15.5 H Plt Count 437 MPV 7.1 L Gran % 74.6 Lymph % (Auto) 14.5 L [place] % (Auto) 6.9 Eos % (Auto) 3.8 Baso % (Auto) 0.2 Gran # 7.1 Lymph # (Auto) 1.4 L [place] # (Auto) 0.7 Eos # (Auto) 0.4 Baso # (Auto) 0 Sodium 146 H Potassium 3.8 Chloride 105 Carbon Dioxide 28 Anion Gap 13.0 BUN 14 Creatinine 0.9 GFR Calculation 70 Glucose 97 Uric Acid 3.8 Calcium 8.8 Phosphorus 3.6 Magnesium 1.9 Total Bilirubin 0.4 Direct Bilirubin < 0.2 GGT 148 H AST 72 H ALT 62 H Alkaline Phosphatase 294 H Lactate Dehydrogenase 238 Total Protein 6.7 Albumin 2.8 L Globulin 3.9 H Albumin/Globulin Ratio 0.7 L Triglycerides 120 Preliminary micro results at discharge 04/21/19 11:15 Blood Culture - Preliminary Blood 04/21/19 11:25 Blood Culture - Preliminary Blood Medical - DS: A/P - Patient/Caregiver Discharge Instructions Activity: increase activity as tolerated Diet: Regular Diet Additional Instructions: Follow-up PCP in 5 days Continue oral cefuroxime for additional 4 days All meals on chair sitting upright at 90 degrees to prevent aspiration Return to ER if worsening fever chills shortness of breath, diarrhea, bleeding Review risk and side effect profile of medications including antibiotics. Side effect may include mild to severe reaction including rash, diarrhea, cdiff and even which can be prevented by close follow-up with PCP and monitoring for side effects Refrain from smoking and alcohol Continue diet and activity as advised Discussed importance of medication adherence Please review medication list with patient prior to discharge Please schedule follow-up with PCP/Providers prior to discharge and provide printouts Prescriptions: Cefuroxime [Ceftin] 500 mg PO Q12 #8 tab Lactobacillus [Culturelle] 1 cap PO BID #20 cap - Follow up Plan Follow up with: Mratina Thomson MD [Primary Care Provider] - Disposition: Home, Self-Care Prognosis: Fair Rehab Potential: Fair I certify that the patient requires SNF services: No Overall status at discharge: patient is progressing back to baseline Medical - DS: Qual - VTE Deep Vein Thrombosis/Pulmonary Embolism Present on Admission: No
== END 2019-04-24 14:03 | disposition home or self-care (01) | DRG 871 ==
LOC: ED 19:38 → ICU 04-19 00:11 → MEDSUR 04-21 13:16
PROVIDERS: ADMIT Internal Medicine; ATTEND Internal Medicine

== ENCOUNTER 2024-04-20 14:35 | Inpatient (IN) ==
[2024-04-20] MEDS ORDERED: IOPAMIDOL 100 ML BOTTLE IV ONE (14:36)
[2024-04-20] MEDS: 0.9 % SODIUM CHLORIDE 1,000 ML IV ONE ×2 (15:46→18:41)
[2024-04-20] MEDS: ACETAMINOPHEN 650 MG/65 ML BAG IV ONE (15:46)
[2024-04-20 15:59] LABS: Basophils # (Auto) 0.01 K/mcL (0.00-0.30); Basophils % (Auto) 0 % (0.0-2.0); Eosinophils # (Auto) 0.19 K/mcL (0.00-0.70); Eosinophils % (Auto) 0.9 % (0.0-7.0); Hematocrit 47.4 % (34.1-44.9); Lymphocytes # (Auto) 2.53 K/mcL (1.50-4.80); Lymphocytes % (Auto) 12.3 % (15.5-49.0); Mean Cell Volume 90.1 fL (80.0-100.0); Mean Corpuscular HGB Conc 31.6 g/dL (31.0-36.0); Mean Platelet Volume 9.6 fL (8.8-12.5); Monocytes # (Auto) 1.14 K/mcL (0.10-0.90); Monocytes % (Auto) 5.6 % (1.0-12.0); Neutrophils % (Auto) 80.9 % (38.0-78.0); Platelet Count 324 K/mcL (140-440); RBC 5.26 M/mcL (3.59-5.38); Red Cell Distribution Width 13.9 % (11.5-14.5); WBC 20.5 K/mcL (4.5-11.0)
[2024-04-20 16:24] LABS: ALT/SGPT 17 U/L (<40); AST/SGOT 24 U/L (<32); Albumin 3.7 gm/dL (3.2-5.2); Alkaline Phosphatase 104 U/L (39-117); Bilirubin,Total 0.4 mg/dL (0.1-1.0); Blood Urea Nitrogen 23 mg/dL (8-23); Calcium 9.8 mg/dL (8.6-10.4); Carbon Dioxide 21 mmol/L (22-30); Chloride 102 mmol/L (96-108); Globulin 3.6 gm/dL (2.2-3.7); Glomerular Filtration Rate 52; Glucose 116 mg/dL (70-105)
[2024-04-20] MEDS: LIDOCAINE 1% 10 ML VIAL SQ ONE (16:24)
[2024-04-20] MEDS: VANCOMYCIN 1,500 MG in 0.9 % SODIUM CHLORIDE 500 ML IV ONE (16:28)
[2024-04-20] MEDS: CEFEPIME 1 GM VIAL IV ONE (16:28)
[2024-04-20] MEDS: morphine 4 MG/ML VIAL IV ONE (18:08)
[2024-04-20] MEDS: ONDANSETRON 4 MG/2 ML VIAL IV ONE (18:08)
[2024-04-20] MEDS: diphenhydrAMINE 50 MG/ML VIAL IV ONE (18:08)
[2024-04-20 18:14] LABS: Appearance,Urine Clear (Clear); Bacteria,Urine Few /hpf (0); Bilirubin,Urine Non-reportable mg/dL (Negative); Color,Urine Yellow; Culture Indicated,Urine Yes; Glucose,Urine (UA) Negative (Negative); Ketones,Urine Negative (Negative); Leukocyte Esterase,Urine Negative /uL (Negative); Mucus,Urine Many /hpf; Nitrate,Urine Negative (Negative); PH,Urine 5.5 (5.0-9.0); Protein,Urine 30 mg/dL (Negative); Urine Blood Trace-intact ery/mcL (Negative); Urine RBC 0 /hpf (0-3); Urine Squamous Epithelial Cell 1 /hpf (0-4); Urine WBC 20 /hpf (0-4); Urobilinogen,Urine Normal
[2024-04-20] MEDS ORDERED: POLYETHYLENE GLYCOL 3350 17 GM PACKET PO PRN (20:09)
[2024-04-20] MEDS ORDERED: ACETAMINOPHEN 325 MG TABLET PO PRN (20:09)
[2024-04-20] MEDS ORDERED: POTASSIUM CHLORIDE 20 MEQ TABLET PO PRN ×2 (20:09)
[2024-04-20] MEDS ORDERED: POTASSIUM CHLORIDE 40 MEQ in DEXTROSE 5% IN WATER 500 ML IV PRN (20:09)
[2024-04-20] MEDS ORDERED: MAGNESIUM SULFATE 2 GM/50 ML BAG IV PRN (20:09)
[2024-04-20] MEDS ORDERED: IPRATROPIUM/ALBUTEROL 3 ML AMPUL.NEB NEB PRN (20:09)
[2024-04-20 20:37] LABS: Band Neutrophils % 5 % (0-10); Eosinophils % (Manual) 1 % (0-7); Lymphocytes % 11 % (15-49); Monocytes % (Manual) 2 % (1-12); Platelet Estimate NORMAL (Normal); RBC Morphology NORMAL (Normal); Segmented Neutrophils % 81 % (38-78)
[2024-04-20] MEDS: 0.9 % SODIUM CHLORIDE 1,000 ML IV SCH (21:02)
[2024-04-20] MEDS: HYDROcodone/APAP 5/325MG TABLET PO PRN (22:26)
[2024-04-20] MEDS: 0.9 % SODIUM CHLORIDE 10 ML SYRINGE IV SCH (22:26)
[2024-04-20] MEDS: PIPERACILLIN SODIUM/TAZOBACTAM 3.375 GM in DEXTROSE 5% IN WATER 100 ML IV SCH (23:19)
[2024-04-20] MEDS: CLOTRIMAZOLE CRM 1% 1 DOSE TUBE TOPICAL SCH (23:19)
[2024-04-21 06:39] LABS: Basophils # (Auto) 0.03 K/mcL (0.00-0.30); Basophils % (Auto) 0.2 % (0.0-2.0); Eosinophils # (Auto) 0.48 K/mcL (0.00-0.70); Eosinophils % (Auto) 3.2 % (0.0-7.0); Hematocrit 37.9 % (34.1-44.9); Hemoglobin 11.8 g/dL (11.2-15.7); Lymphocytes # (Auto) 0.98 K/mcL (1.50-4.80); Lymphocytes % (Auto) 6.5 % (15.5-49.0); Mean Cell Volume 91.8 fL (80.0-100.0); Mean Corpuscular HGB Conc 31.1 g/dL (31.0-36.0); Mean Platelet Volume 9.5 fL (8.8-12.5); Monocytes # (Auto) 0.89 K/mcL (0.10-0.90); Monocytes % (Auto) 5.9 % (1.0-12.0); Platelet Count 240 K/mcL (140-440); RBC 4.13 M/mcL (3.59-5.38); Red Cell Distribution Width 14.1 % (11.5-14.5); WBC 15.1 K/mcL (4.5-11.0)
[2024-04-21 06:43] LABS: ALT/SGPT 12 U/L (<40); AST/SGOT 16 U/L (<32); Albumin 3.1 gm/dL (3.2-5.2); Albumin/Globulin Ratio 1.2 (1.0-2.3); Alkaline Phosphatase 81 U/L (39-117); Bilirubin,Direct < 0.2 mg/dL (0-0.3); Bilirubin,Total 0.4 mg/dL (0.1-1.0); Blood Urea Nitrogen 16 mg/dL (8-23); Calcium 8.4 mg/dL (8.6-10.4); Carbon Dioxide 20 mmol/L (22-30); Chloride 108 mmol/L (96-108); Globulin 2.5 gm/dL (2.2-3.7); Glomerular Filtration Rate 67; Glucose 118 mg/dL (70-105); Lactate Dehydrogenase 177 U/L (135-225); Phosphorous 3.2 mg/dL (2.5-4.5); Triglycerides 103 mg/dL (<150); Uric Acid 4.7 mg/dL (2.5-8.0)
[2024-04-21] MEDS: ENOXAPARIN 40 MG/0.4 ML SYRINGE SQ SCH (08:45)
[2024-04-21] MEDS: metroNIDAZOLE 500 MG/100 ML BAG IV SCH (08:45)
[2024-04-21] MEDS: cefTRIAXone 2 GM in DEXTROSE 5% IN WATER 50 ML IV SCH (09:59)
[2024-04-21] MEDS: diphenhydrAMINE 25 MG CAPSULE PO PRN (09:59)
[2024-04-21] MEDS: ONDANSETRON 4 MG/2 ML VIAL IV PRN (19:52)
[2024-04-22 06:38] LABS: Basophils # (Auto) 0.01 K/mcL (0.00-0.30); Basophils % (Auto) 0.1 % (0.0-2.0); Eosinophils # (Auto) 0.68 K/mcL (0.00-0.70); Eosinophils % (Auto) 7.7 % (0.0-7.0); Hematocrit 33.9 % (34.1-44.9); Hemoglobin 10.7 g/dL (11.2-15.7); Lymphocytes # (Auto) 0.89 K/mcL (1.50-4.80); Lymphocytes % (Auto) 10.1 % (15.5-49.0); Mean Cell Volume 91.1 fL (80.0-100.0); Mean Corpuscular HGB Conc 31.6 g/dL (31.0-36.0); Mean Platelet Volume 9.6 fL (8.8-12.5); Monocytes # (Auto) 0.64 K/mcL (0.10-0.90); Monocytes % (Auto) 7.3 % (1.0-12.0); Neutrophils % (Auto) 74.5 % (38.0-78.0); Platelet Count 204 K/mcL (140-440); RBC 3.72 M/mcL (3.59-5.38); Red Cell Distribution Width 13.6 % (11.5-14.5); WBC 8.8 K/mcL (4.5-11.0)
[2024-04-22 08:13] LABS: ALT/SGPT 13 U/L (<40); AST/SGOT 18 U/L (<32); Albumin 2.9 gm/dL (3.2-5.2); Albumin/Globulin Ratio 1.2 (1.0-2.3); Alkaline Phosphatase 92 U/L (39-117); Bilirubin,Total 0.2 mg/dL (0.1-1.0); Blood Urea Nitrogen 10 mg/dL (8-23); Calcium 8.5 mg/dL (8.6-10.4); Carbon Dioxide 22 mmol/L (22-30); Chloride 107 mmol/L (96-108); Globulin 2.5 gm/dL (2.2-3.7); Glomerular Filtration Rate 77; Glucose 93 mg/dL (70-105)
[2024-04-22] MEDS ORDERED: PNEUMOCOCCAL 23-VAL P-SAC VAC 0.5 ML SYRINGE IM ONE (10:00)
[2024-04-22] MEDS: VANCOMYCIN 125 MG CAPSULE PO SCH (13:43)
[2024-04-22] MEDS: CEPHALEXIN 500 MG CAPSULE PO SCH (13:43)
[2024-04-23 06:50] LABS: ALT/SGPT 12 U/L (<40); AST/SGOT 17 U/L (<32); Albumin/Globulin Ratio 1.3 (1.0-2.3); Alkaline Phosphatase 77 U/L (39-117); Bilirubin,Total < 0.2 mg/dL (0.1-1.0); Blood Urea Nitrogen 10 mg/dL (8-23); Calcium 8.6 mg/dL (8.6-10.4); Carbon Dioxide 25 mmol/L (22-30); Chloride 107 mmol/L (96-108); Globulin 2.3 gm/dL (2.2-3.7); Glomerular Filtration Rate 77; Glucose 94 mg/dL (70-105)
[2024-04-23 07:04] LABS: Basophils # (Auto) 0.02 K/mcL (0.00-0.30); Basophils % (Auto) 0.3 % (0.0-2.0); Eosinophils # (Auto) 0.69 K/mcL (0.00-0.70); Eosinophils % (Auto) 11.9 % (0.0-7.0); Hematocrit 33.6 % (34.1-44.9); Hemoglobin 10.7 g/dL (11.2-15.7); Lymphocytes # (Auto) 0.84 K/mcL (1.50-4.80); Lymphocytes % (Auto) 14.5 % (15.5-49.0); Mean Cell Volume 90.3 fL (80.0-100.0); Mean Corpuscular HGB Conc 31.8 g/dL (31.0-36.0); Mean Platelet Volume 9.2 fL (8.8-12.5); Monocytes % (Auto) 10.3 % (1.0-12.0); Neutrophils % (Auto) 62.5 % (38.0-78.0); Platelet Count 200 K/mcL (140-440); RBC 3.72 M/mcL (3.59-5.38); Red Cell Distribution Width 13.6 % (11.5-14.5); WBC 5.8 K/mcL (4.5-11.0)
[2024-04-24 07:52] LABS: Basophils # (Auto) 0.01 K/mcL (0.00-0.30); Basophils % (Auto) 0.2 % (0.0-2.0); Eosinophils # (Auto) 0.37 K/mcL (0.00-0.70); Eosinophils % (Auto) 5.7 % (0.0-7.0); Hematocrit 33.8 % (34.1-44.9); Hemoglobin 10.6 g/dL (11.2-15.7); Lymphocytes # (Auto) 0.92 K/mcL (1.50-4.80); Lymphocytes % (Auto) 14.3 % (15.5-49.0); Mean Cell Volume 90.9 fL (80.0-100.0); Mean Corpuscular HGB Conc 31.4 g/dL (31.0-36.0); Mean Platelet Volume 9.1 fL (8.8-12.5); Monocytes # (Auto) 0.55 K/mcL (0.10-0.90); Monocytes % (Auto) 8.5 % (1.0-12.0); Platelet Count 210 K/mcL (140-440); RBC 3.72 M/mcL (3.59-5.38); Red Cell Distribution Width 13.7 % (11.5-14.5); WBC 6.4 K/mcL (4.5-11.0)
[2024-04-24 08:40] LABS: ALT/SGPT 16 U/L (<40); AST/SGOT 26 U/L (<32); Albumin 3.1 gm/dL (3.2-5.2); Albumin/Globulin Ratio 1.3 (1.0-2.3); Alkaline Phosphatase 98 U/L (39-117); Bilirubin,Total < 0.2 mg/dL (0.1-1.0); Blood Urea Nitrogen 10 mg/dL (8-23); Calcium 8.8 mg/dL (8.6-10.4); Carbon Dioxide 26 mmol/L (22-30); Chloride 107 mmol/L (96-108); Globulin 2.4 gm/dL (2.2-3.7); Glomerular Filtration Rate 95; Glucose 102 mg/dL (70-105)
[2024-04-24] MEDS: PNEUMOCOCCAL 23-VAL P-SAC VAC 0.5 ML SYRINGE IM ONE (10:23)
[2024-04-24] MEDS: IBUPROFEN 600 MG TABLET PO PRN (12:49)
[2024-04-25 06:53] LABS: Basophils # (Auto) 0.01 K/mcL (0.00-0.30); Basophils % (Auto) 0.2 % (0.0-2.0); Eosinophils # (Auto) 0.37 K/mcL (0.00-0.70); Eosinophils % (Auto) 5.6 % (0.0-7.0); Hematocrit 35.2 % (34.1-44.9); Hemoglobin 10.7 g/dL (11.2-15.7); Lymphocytes # (Auto) 1.22 K/mcL (1.50-4.80); Lymphocytes % (Auto) 18.4 % (15.5-49.0); Mean Cell Volume 94.1 fL (80.0-100.0); Mean Corpuscular HGB Conc 30.4 g/dL (31.0-36.0); Mean Platelet Volume 9.1 fL (8.8-12.5); Monocytes # (Auto) 0.47 K/mcL (0.10-0.90); Monocytes % (Auto) 7.1 % (1.0-12.0); Neutrophils % (Auto) 67.6 % (38.0-78.0); Platelet Count 220 K/mcL (140-440); RBC 3.74 M/mcL (3.59-5.38); Red Cell Distribution Width 13.9 % (11.5-14.5); WBC 6.6 K/mcL (4.5-11.0)
[2024-04-25 07:10] LABS: ALT/SGPT 19 U/L (<40); AST/SGOT 35 U/L (<32); Albumin 3.2 gm/dL (3.2-5.2); Albumin/Globulin Ratio 1.3 (1.0-2.3); Alkaline Phosphatase 105 U/L (39-117); Bilirubin,Total < 0.2 mg/dL (0.1-1.0); Blood Urea Nitrogen 14 mg/dL (8-23); Carbon Dioxide 25 mmol/L (22-30); Chloride 106 mmol/L (96-108); Globulin 2.5 gm/dL (2.2-3.7); Glomerular Filtration Rate 91; Glucose 98 mg/dL (70-105)
[2024-04-25] MEDS: BISMUTH SUBSALICYLATE 15 ML ORAL.SUSP PO PRN (21:23)
[2024-04-26 07:59] LABS: Basophils # (Auto) 0.03 K/mcL (0.00-0.30); Basophils % (Auto) 0.4 % (0.0-2.0); Eosinophils # (Auto) 0.38 K/mcL (0.00-0.70); Eosinophils % (Auto) 5.4 % (0.0-7.0); Hematocrit 33.9 % (34.1-44.9); Hemoglobin 10.3 g/dL (11.2-15.7); Lymphocytes # (Auto) 1.87 K/mcL (1.50-4.80); Lymphocytes % (Auto) 26.5 % (15.5-49.0); Mean Cell Volume 93.9 fL (80.0-100.0); Mean Corpuscular HGB Conc 30.4 g/dL (31.0-36.0); Mean Platelet Volume 9.1 fL (8.8-12.5); Monocytes # (Auto) 0.56 K/mcL (0.10-0.90); Monocytes % (Auto) 7.9 % (1.0-12.0); Neutrophils % (Auto) 58.5 % (38.0-78.0); Platelet Count 235 K/mcL (140-440); RBC 3.61 M/mcL (3.59-5.38); WBC 7.1 K/mcL (4.5-11.0)
[2024-04-26 08:24] LABS: ALT/SGPT 26 U/L (<40); AST/SGOT 30 U/L (<32); Albumin 3.2 gm/dL (3.2-5.2); Albumin/Globulin Ratio 1.3 (1.0-2.3); Alkaline Phosphatase 110 U/L (39-117); Bilirubin,Total < 0.2 mg/dL (0.1-1.0); Blood Urea Nitrogen 14 mg/dL (8-23); Calcium 8.9 mg/dL (8.6-10.4); Carbon Dioxide 27 mmol/L (22-30); Chloride 105 mmol/L (96-108); Globulin 2.5 gm/dL (2.2-3.7); Glomerular Filtration Rate 91; Glucose 132 mg/dL (70-105)
[2024-04-26] MEDS: morphine 4 MG/ML VIAL IV PRN (19:29)
[2024-04-27 07:25] LABS: Basophils # (Auto) 0.01 K/mcL (0.00-0.30); Basophils % (Auto) 0.1 % (0.0-2.0); Eosinophils # (Auto) 0.39 K/mcL (0.00-0.70); Eosinophils % (Auto) 4.6 % (0.0-7.0); Hematocrit 33.2 % (34.1-44.9); Hemoglobin 10.3 g/dL (11.2-15.7); Lymphocytes # (Auto) 1.93 K/mcL (1.50-4.80); Lymphocytes % (Auto) 22.9 % (15.5-49.0); Mean Cell Volume 93.5 fL (80.0-100.0); Mean Platelet Volume 9.2 fL (8.8-12.5); Monocytes # (Auto) 0.64 K/mcL (0.10-0.90); Monocytes % (Auto) 7.6 % (1.0-12.0); Neutrophils % (Auto) 63.1 % (38.0-78.0); Platelet Count 262 K/mcL (140-440); RBC 3.55 M/mcL (3.59-5.38); Red Cell Distribution Width 13.9 % (11.5-14.5); WBC 8.4 K/mcL (4.5-11.0)
[2024-04-27 07:45] LABS: ALT/SGPT 27 U/L (<40); AST/SGOT 30 U/L (<32); Albumin 3.3 gm/dL (3.2-5.2); Albumin/Globulin Ratio 1.3 (1.0-2.3); Alkaline Phosphatase 99 U/L (39-117); Bilirubin,Total < 0.2 mg/dL (0.1-1.0); Blood Urea Nitrogen 20 mg/dL (8-23); Calcium 9.1 mg/dL (8.6-10.4); Carbon Dioxide 27 mmol/L (22-30); Chloride 106 mmol/L (96-108); Globulin 2.5 gm/dL (2.2-3.7); Glomerular Filtration Rate 67; Glucose 95 mg/dL (70-105)
== END 2024-04-27 14:48 | DRG 372 ==
LOC: ED 14:35 → MEDSUR 20:06
PROVIDERS: ADMIT Internal Medicine; ATTEND Student in an Organized Health Care Education/Training Program